=== PATIENT | male | born 1955 | race Caucasian/White ===

== ENCOUNTER 2018-08-24 07:38 | Inpatient (IN) | payer OTHER ==
[2018-08-24] VITALS (40 sets, daily range): BP systolic 51–123; BP diastolic 23–93
[~2018-08-24] VITALS: Ht 188 cm; Wt 179.2 kg
[2018-08-24 08:01] LABS: ABSOLUTE NEUTROPHILS 11.5 thou/uL (1.4-8.2); BASOPHILS 0.3 % (0.0-2.0); EOSINOPHILS 0.8 % (0.0-3.0); HEMATOCRIT 36.9 % (42.0-52.0); HEMOGLOBIN 11.9 gm/dL (14.0-18.0); LYMPHOCYTES 17.1 % (24.0-44.0); MCH 27.3 pg (26.0-34.0); MCHC 32.4 g/dL (28.0-37.0); MCV 84.3 fL (80.0-100.0); MONOCYTES 3.9 % (1.0-8.0); PLATELET COUNT 253 thou/uL (150-400); POLYS 77.9 % (36.0-66.0); RBC 4.37 mil/uL (4.50-6.00); RDW 17.7 % (10.5-14.5); WBC 14.7 thou/uL (4.0-11.0)
[2018-08-24 08:02] LABS: URINE CLARITY CLEAR; URINE COLOR YELLOW
[2018-08-24 08:03] LABS: URINE BILIRUBIN NEGATIVE (Negative); URINE BLOOD NEGATIVE (Negative); URINE GLUCOSE-RANDOM* NEGATIVE (Negative); URINE KETONES NEGATIVE (Negative); URINE LEUKOCYTES-REFLEX NEGATIVE (Negative); URINE NITRITE-REFLEX NEGATIVE (Negative); URINE PROTEIN (DIPSTICK) NEGATIVE (Negative); URINE SPECIFIC GRAVITY 1.015 (1.005-1.035); URINE UROBILINOGEN 0.2 E.U./dl (0.2-1.0)
[2018-08-24 08:16] LABS: CALCIUM 9.4 mg/dL (8.5-10.1); CREATININE 3.3 mg/dL (0.7-1.3); POTASSIUM 3.9 mmol/L (3.5-5.1)
[2018-08-24 08:19] LABS: APTT 33.6 Seconds (24.5-32.8); INR 1.2; PROTIME 12.5 Seconds (9.3-11.4)
[2018-08-24 08:22] LABS: ALBUMIN 3.3 g/dL (3.4-5.0); TOTAL BILIRUBIN 0.6 mg/dL (<0.1-1.0); TOTAL PROTEIN 7.4 g/dL (6.4-8.2)
[2018-08-24 08:24] LABS: MAGNESIUM 1.7 mg/dL (1.8-2.4); TROPONIN-I <0.06 ng/mL (<0.06)
--- NOTE | 2018-08-24 08:28 | NUR ---
TREATMENT FOR SEPSIS IN PLACE.
[2018-08-24] MEDS ORDERED: VITAMINC500 PO (08:38)
[2018-08-24] MEDS ORDERED: ELIQUIS5 MG PO (08:38)
[2018-08-24] MEDS ORDERED: VITAMIN D1000 UNI1 PO (08:39)
[2018-08-24] MEDS ORDERED: BISACODYL SUPP10 MG RECTAL (08:40)
[2018-08-24] MEDS ORDERED: CIPRO500 MG PO (08:40)
[2018-08-24] MEDS ORDERED: FLOMAX0.4 MG PO (08:40)
[2018-08-24] MEDS ORDERED: IRON325 PO (08:40)
[2018-08-24] MEDS ORDERED: LEVEMIR SUBQ (08:41)
[2018-08-24] MEDS ORDERED: NEURONTIN 300300 M1 PO (08:41)
[2018-08-24] MEDS ORDERED: PROBIOTIC1 EAC1 PO (08:41)
[2018-08-24] MEDS ORDERED: LOPRESSOR50 PO (08:42)
[2018-08-24] MEDS ORDERED: OXYCONTIN10 M1 PO (08:43)
[2018-08-24] MEDS ORDERED: MIRALAX17 GM PO (08:43)
[2018-08-24] MEDS ORDERED: THERAGRAN STRE1 EACH PO (08:44)
[2018-08-24] MEDS ORDERED: SIMVASTATIN20 MG PO (08:44)
[2018-08-24] MEDS ORDERED: PROTONIX40 M1 PO (08:44)
[2018-08-24] MEDS ORDERED: DEMADEX20 MG PO (08:45)
[2018-08-24] MEDS ORDERED: SENNA8.6 MG PO (08:45)
[2018-08-24] MEDS ORDERED: TYLENOL325 MG PO (08:45)
--- NOTE | 2018-08-24 09:09 | NUR ---
DR COOK AT [facility] PLACING SUBCLAVIAN CENTRAL LINE
--- NOTE | 2018-08-24 10:00 | NUR ---
REPORT RECEIVED FROM PREVIOUS FLAG DECORATOR. PT TRANSFERRED PER CART, THEN ADMITTED TO ICU #247 WITH DIAGNOSIS OF SEPSIS, CELLULITIS AND AFIB RVR. R LOWER EXTREMITY LATERAL AND POSTERIOR EXTREMITY PINK/RED AND WARM/HOT TO TOUCH, EDEMA GREATER IN R LOWER EXTREMITY THAN L. WOUND VAC TUBING REMAINS ATTACHED TO WOUND SITE. WOUND VAC REMOVED PRIOR TO HOSPITAL ARRIVAL. TATYANA WRAP INTACT ON R BKA STUMP SITE. LEVOPHED 20MCG/MIN, NS BOLUSES FROM ER COMPLETING. AFIB WITH RVR, 2L/NC, NO RESP DISTRESS, RESP EVEN AND UNLABORED, TOLERATING SIPS OF WATER, PAVON WITH CLEAR YELLOW URINE OUTPUT.
--- NOTE | 2018-08-24 11:30 | NUR ---
DR. TAYLOR RETURNED CALL. UPDATED ON PT STATUS. NS 1/L WIDE OPEN ORDERED.
[2018-08-24 12:45] LABS: HCO3 17.9 mmol/L (22.0-26.0); PCO2 30.2 mmHg (35.0-45.0); PO2 72.8 mmHg (80.0-100.0); sO2 94.8 % (92.0-98.0)
[2018-08-24 12:53] LABS: CALCIUM 8.7 mg/dL (8.5-10.1); CREATININE 3.6 mg/dL (0.7-1.3); POTASSIUM 3.3 mmol/L (3.5-5.1)
--- NOTE | 2018-08-24 13:05 | NUR ---
VASCULAR ACCESS CONSULTED FOR PICC LINE, PT HAS HX DIALYSIS WITH ELEVATED CREAT., CVAD MORE APPROPRIATE. DISCUSSED BENEFITS AND RISK OF CENTRAL LINE WITH PT, VERBALIZED UNDERSTANDING. PT WAS PREPPED AND DRAPED FOR MAX BARRIER PRECAUTIONS. 1% LIDOCAINE GIVEN SQ.25CM 6FR TL JACC INSERTED WITH 4CM EXTERNAL. STAT CXR SHOWED IN AZYGOS. LINE PULLED BACK 2CM AND POWER FLUSHED, NEXT CXR CONFIRMED PLACEMENT IN DISTAL SVC. LINE SECURED AND RELEASED FOR IMMEDIATE USE PER PROTOCOL TO VIRAJ KUO.
[2018-08-24 13:29] LABS: FIBRINOGEN 457.6 mg/dL (210-360)
[2018-08-24 13:33] LABS: APTT 50.1 Seconds (24.5-32.8)
--- NOTE | 2018-08-24 15:20 | NUR ---
DR. CANTU PLACED R RADIAL JODIE. WELL TOLERATED. JODIE READS ABOUT 30 LOWER THAN NIBP. VASOPRESSIN STARTED AT 0.03 UNITS/MIN. PT RESTING QUIETLY, DENIES ANY DISCOMFORT.
[2018-08-24 18:31] LABS: CALCIUM 8.3 mg/dL (8.5-10.1); POTASSIUM 3.4 mmol/L (3.5-5.1); TROPONIN-I 0.1 ng/mL (<0.06)
--- NOTE | 2018-08-24 18:50 | NUR ---
DR. SHAVER PAGED @ [phone]. CALL RETURNED AND UPDATED ON PT STATUS. AFIB WITH RVR 130'S TO 140'S AND HIGH 150'S. SEE MARS ADDITIONAL NS BOLUS ADMINISTRATION. MAP GOAL-60 FOR VASOACTIVE GTTS.
[2018-08-25] VITALS (19 sets, daily range): BP systolic 88–121; BP diastolic 44–74
[2018-08-25 02:15] LABS: CALCIUM 8.2 mg/dL (8.5-10.1); CREATININE 4.2 mg/dL (0.7-1.3); POTASSIUM 4.2 mmol/L (3.5-5.1)
[2018-08-25 04:42] LABS: HEMATOCRIT 32.6 % (42.0-52.0); HEMOGLOBIN 10.9 gm/dL (14.0-18.0); MCH 28.6 pg (26.0-34.0); MCHC 33.5 g/dL (28.0-37.0); MCV 85.2 fL (80.0-100.0); PLATELET COUNT 235 thou/uL (150-400); RBC 3.82 mil/uL (4.50-6.00); RDW 18.1 % (10.5-14.5)
[2018-08-25 04:44] LABS: WBC 41.6 thou/uL (4.0-11.0)
[2018-08-25 05:11] LABS: ABSOLUTE NEUTROPHILS 38.3 thou/uL (1.4-8.2)
[2018-08-25 05:13] LABS: ANISOCYTOSIS 2+; PLATELET ESTIMATE NORMAL; POLYCHROMASIA OCCASIONAL
--- NOTE | 2018-08-25 05:53 | NUR ---
ASSUMED PT CARE AT 1900 WITH REPORT TAKEN. PT IS ALERT BUT LETHARGIC WITH ADMISSION OF SEPSIS. HEART RATE IS AFIB WITH RVR WITH HYPOTENSION NOTED. PT IS PLACED ON SEPSIS PROTOCOL. DR CANTU NOTIFIED OF PATIENT'S STATUS AND ORDERS WERE RECEIVED. BKA IS PRESENT ON PT'S RIGHT LEG AND DRESSING WAS CHANGED AND PICTURES TAKEN AND PLACED IN CHART. PT IS STABLE. SCHEDULED MEDS ADMINISTERED TO PT AND PT TOLERATED MEDS. ART LINE AND CVP LINE PRESENT. PT IS AFEBRILE DURING THE NIGHT. PT IS STABLE EXECEPT FOR AFIB STATUS. DENIES ANY FURTHER NEED AT THIS TIME.
--- NOTE | 2018-08-25 13:25 | HC ---
[facility] [place] [address] CONSULTATION Name: SABINO BELL Room #: 247-P [facility] IN M.R.#: [id number] Admission: 08/24/18 Attend Phys: Kendall Sainz MD Discharge: Date of : 53 Report #: [id number] THIS REPORT FOR: //name// CC: Kendall Daniels DATE OF SERVICE: 08/24/2018 CONSULTATION: Infectious diseases. HISTORY OF PRESENT ILLNESS: Sabino Bell is a 63-year-old white male who was admitted emergently from his snf on the morning of 08/24/2018 because of fever with weakness and depressed mental status. The patient had very little documentation brought with him by the ambulance crew. There are no previous records at [facility]. In the ER, the patient was found to be in atrial fibrillation with a pulse of 199, blood pressure of 74/33 and temperature of 103.6. The patient was admitted urgently. Infectious Disease consultation was requested. The patient has history of diabetes with hypertension, atrial fibrillation. He underwent a below-knee amputation of his right leg in April of last year. He required dialysis and was on dialysis in June of last year, but has adequate recovery of kidney function to have the dialysis stopped and the catheter removed. The patient has diagnosis of obesity, peripheral artery disease. ALLERGIES: He notes allergies to PENICILLIN and SULFA. FAMILY HISTORY: Noncontributory. SOCIAL HISTORY: The patient is single. He hopes to return to living independently after he recovers from his amputation. He has been in hospitals or facilities for about a year according to the patient. 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 He does not use tobacco, alcohol or drugs. REVIEW OF SYSTEMS: Somewhat limited as the patient is still quite ill, but he is able to answer questions. He notes the fevers, chills, sweats, weakness, malaise. He does not complain of any headache, sinus congestion, sore throat, trouble swallowing. The patient is not complaining of cough, chest pain, shortness of breath. He is on oxygen here in the ICU. The patient denies nausea, vomiting, diarrhea or constipation. He denies any urinary complaints. He denies any pain in his extremities. MEDICATION RECONCILIATION: We do not have a medication list from the snf. The patient is not familiar with the medications that he is on. His current medication includes adenosine, vancomycin, and Tylenol. [address] [address] CONSULTATION Name: SABINO BELL Room #: 247-P [facility] IN ..#: [id number] Admission: 08/24/18 Attend Phys: Kendall Sainz MD Discharge: Date of : 53 Report #: [id number] PHYSICAL EXAMINATION: GENERAL: The patient appears his stated age, alert. He knows he is in the hospital. He is comfortable, not in distress. VITAL SIGNS: Showed that the pulse is down to 120 with an amiodarone drip. His blood pressure is stabilized on moderate dose of Levophed. His temperature has come down to normal. SKIN: Shows his below-knee amputation stump. This was unwrapped. There were 2 Manuel bandages. Under the bandage was a VAC sponge measuring about 6 x 4 cm. This was removed revealing a base of creamy fibrinous biofilm and exudate. The sponge was on the wound, but the vacuum device had been disconnected presumably when the patient left his facility. His admit time was approximately 15 hours prior to when I had a chance to examine the patient. The skin around the open wound was erythematous. The erythema spread posteriorly up behind the knee and then medially up towards the groin. The leg was somewhat tender. It was not swollen. It was red and warm as noted with the large purulent-appearing wound. Other extremities were unremarkable.The left leg had chronic venous stasis changes, but palpable pulse. ENT: Negative. HEART: Sounds rapid, but normal. LUNGS: Clear to anterior auscultation. ABDOMEN: Belly was obese, soft, not tender. LABORATORY DATA: White count was 14.7, hemoglobin 11.9, platelet 263,000. Electrolytes were normal. BUN was 89, creatinine was 4.0. Glucose was 243. Liver function tests showed elevation of alkaline phosphatase at 196. Thyroid function tests were normal. Lactate was 5.5, then down to 3.3. Procalcitonin was 176. BNP elevated at 3955 and troponin elevated at 0.11. MRSA swab from the nares was negative. Blood cultures x 2 from the ER are now showing Gram-positive cocci with identification and characterization to follow. some kind of catastrophic hospitalization, which included below-knee amputation, failure of the wound, temporary dialysis. He now returns with wound infection with cellulitis and Gram-positive bacteremia. He has septic parameters including fever, hypotension, tachycardia and again has dialysis level renal dysfunction. With 2 blood cultures showing Gram-positive cocci and appearing the wound as the source, I think it is reasonable to focus our antibiotics on vancomycin therapy. The patient received 2000 mg load in the ER and 500 mg 12 hours earlier. I think we should hold the vancomycin and check vancomycin level at 12 hours after the last dose. Depending on what happens with the renal function, the patient may not need vancomycin for another day or so. We do plan to keep his vancomycin level above 14 and dose appropriately. The patient does not need any further Gram-negative coverage. We want to follow septic parameters including white count, lactate and followup blood cultures. The patient will need renal [facility] [address] [place] [address] CONSULTATION Name: SABINO BELL Room #: 247-P ADM IN M.R.#: [id number] Admission: 08/24/18 Attend Phys: Kendall Sainz MD Discharge: Date of : 53 Report #: [id number] and cardiac evaluation for the elevated creatinine, elevated BNP, and elevated troponin. I would like to check a random cortisol to make sure that there is not a component of hypoadrenalism contributing to his hypotension. Hopefully, the patient will respond quickly to the antibiotics. I will be happy to follow the patient closely with you while he is in the hospital and assist with the antibiotic management. Thank you for referring him for Infectious Disease consultation. <ELECTRONICALLY SIGNED> By: Zohaib Michelle MD 08/25/18 1325 [id number] Zohaib Michelle MD /nt
--- NOTE | 2018-08-25 18:45 | NUR ---
SHIFT SUMMARY: PT PROGRESSING. LEVOPHED TITRATED FROM 30 MCG/MIN TO 3.6 MCG/MIN WHILE KEEPING MAP GREATER THAN 60, VASOPRESSIN CONTINUES AT 0.04 UNITS/MIN. BLOOD PRESSURES VARIABLE SINCE PT RAISING LOWERING HEAD OF BED FREQUENTLY FOR HIS COMFORT FALSELY AFFECTING BP EITHER HIGHER OR LOWER. CONFIRMED CONTINUATION OF SET RATE AMIODARONE 1 MG/MIN AND TO NOTIFY DR. CANTU IF HR DOWN TO 80'S. IV FLUIDS CHANGED TO INCLUDE NA BICARB. REMAINS IN AFIB WITH HR GENERALLY VARYING FROM 105 TO BRIEFLY LOWER 130'S. PT COMPLAINED OF CONSTIPATION WITH INITIAL FIRM STOOL THEN HAD 3 ADDITIONAL LARGE SOFT STOOLS.
[2018-08-25 19:21] LABS: ALBUMIN 2.6 g/dL (3.4-5.0); CREATININE 4.1 mg/dL (0.7-1.3); POTASSIUM 4.5 mmol/L (3.5-5.1); TOTAL BILIRUBIN 0.6 mg/dL (<0.1-1.0); TOTAL PROTEIN 6.6 g/dL (6.4-8.2)
--- NOTE | 2018-08-25 21:55 | EKG ---
[address] [place] [address] ELECTROCARDIOGRAM REPORT Name: SONIA BELL Room #: 247-P ADM IN M.R.#: [id number] Admission: 08/24/18 Attend Phys: Kendall Sainz MD Discharge: Date of : 53 Report #: [id number] THIS REPORT FOR: //name// [facility] ED Test Date: 2018-08-24 Test Time: 08:02:57 Pat Name: SONIA BELL Department: Room: [facility] Gender: M Handle Bender: jose alejandro : 1955 Requested By: Ky Roe Order Number: [id number] MD: Rambo Larry Measurements Intervals [place] Rate: 190 P: -41 FL: 132 QRS: 117 QRSD: 100 T: -48 QT: 276 QTc: 491 Interpretive Statements Supraventricular tachycardia Left posterior fascicular block Abnormal R-wave progression, late transition Minimal ST depression, inferior leads Borderline T abnormalities, inferior leads No previous ECG available for comparison Electronically Signed On 08-25-2018 21:55:10 HEAV[employer] EQUIPMENT SERVICE MANAGER by Rambo Larry [email or web address] <ELECTRONICALLY SIGNED> By: Rambo Larry MD 08/25/18 [phone] [id number] Rambo Larry MD /EPI
[2018-08-25 23:09] LABS: GLYCOHEMOGLOBIN (HGB A1C) 5.1 % (4.8-5.6)
[2018-08-26] VITALS (31 sets, daily range): BP systolic 103–134; BP diastolic 57–85
[2018-08-26 05:37] LABS: HEMATOCRIT 28.8 % (42.0-52.0); HEMOGLOBIN 9.3 gm/dL (14.0-18.0); MCH 27.3 pg (26.0-34.0); MCHC 32.4 g/dL (28.0-37.0); MCV 84.2 fL (80.0-100.0); PLATELET COUNT 150 thou/uL (150-400); RBC 3.42 mil/uL (4.50-6.00); WBC 30.1 thou/uL (4.0-11.0)
[2018-08-26 05:39] LABS: ALBUMIN 2.4 g/dL (3.4-5.0); CALCIUM 7.8 mg/dL (8.5-10.1); CREATININE 3.7 mg/dL (0.7-1.3); PHOSPHORUS 4.7 mg/dL (2.5-4.9); POTASSIUM 4.3 mmol/L (3.5-5.1)
--- NOTE | 2018-08-26 06:40 | NUR ---
END OF SHIFT SUMMARY: Pt progressing toward goals. More alert, interactive, oriented x4. Remains on levophed at 4 mcg/min and Vasopressin 0.04 units/min, but MAP has stayed > 65. Pt titrated down to room air, O2 sat remains > 92%. Monitor remains a-fib, rates 102-130. Amiodorone remains at 1 mg/min. CVP 12-23 cmH2O. Right BKA dressing dry and intact. Urine output adequate. Small amount soft unformed brown stool x1.
[2018-08-26 06:50] LABS: ABSOLUTE NEUTROPHILS 28.9 thou/uL (1.4-8.2); NUCLEATED RBCS 1 /100WBC
[2018-08-26 06:51] LABS: ANISOCYTOSIS 2+
--- NOTE | 2018-08-26 09:42 | NUR ---
RD consult received for pt with sepsis, likely recent right BKA source. Class III extreme obesity, 49. Hx dm. A1C was 5.1, however hospital BG elevated 228-308. Serum zinc pending. Tolerating diet. Needs carb controlled added to order and will also offer lucia bid. Otherwise low nutrition risk.
--- NOTE | 2018-08-26 15:50 | NUR ---
CM ASSESSMENT: CASE OPENED FOR DC PLANNING. CLINICAL INFO REVIEWED. PT ADMITS FROM SKILLED REHAB AT [facility], ADMITTED THERE 08/08/18 FROM [facility]. ADMITTED WITH SEPSIS, AFIB WITH RVR. MET WITH PT WHO IS DROWSY BUT ORIENTED X4. PT STATES HE HAD BEEB IN AND OUT OF HOSPITALS AND REHABS PAST COUPLE YEARS WITH COMORBID CONDITIONS. WAS LIVING IN APT, DRIVING, INDEPENENT WITH ADLS AND IADLS. DEVELOPED DIABETIC WOUND TO RIGHT HEEL, DEVELOPED OSTEO AND ULTIMATELY HAD BKA AND THEN DC TO SKILLED REHAB AT [facility]. PT STATES HAS GIVEN UP HIS APT BUT HOPE TO BE ABLE TO AVOID LTC. PT'S SISTER EMELYN VELEZ IS NEXT OF KIN [phone] AND CALLED HER WITH UPDATE. PT IS AGREEABLE TO RETURN TO [facility] TO RESUME REHAB WHEN MEDICALLY READY.
--- NOTE | 2018-08-26 16:20 | NUR ---
WOUND CONSULT: PT. WAS SEEN TODAY BY DR. JENSEN AND MYSELF. PT. HAS A LARGE ULCER TO HIS RIGHT BKA STUMP THAT HE STATES HAS BEEN THERE SINCE HIS AMPUTATION. RECOMMENDATIONS: WE WILL UTLIZE PULSE LAVAGE AND QUIRINO'S DAILY PT. AND STAFF NURSE WERE INSTRUCTED ON WOUND CARE.
--- NOTE | 2018-08-26 18:39 | NUR ---
SHIFT SUMMARY: ALERT AND ORIENTED, MEDICATED FOR HEADACHE AND NAUSEA WITH PRN MEDS. WEANED OFF THE LEVO AND VASO AND BP MAINTAINING WITHIN NORMAL LIMITS. NOT ABLE TO TOLERATE DIET, TAKING SIPS OF WATER. DRESSING ON RIGHT STUMP CHANGED EARLIER AND THEN THIS AFTERNOON BY WOUND CARE. PAVON WITH MARGINAL OUTPUT. WILL CONTINUE TO POC.
[2018-08-27] VITALS (34 sets, daily range): BP systolic 91–132; BP diastolic 60–87
[2018-08-27 04:40] LABS: ALBUMIN 2.3 g/dL (3.4-5.0); CALCIUM 7.7 mg/dL (8.5-10.1); CREATININE 3.4 mg/dL (0.7-1.3); PHOSPHORUS 4.3 mg/dL (2.5-4.9); POTASSIUM 4.3 mmol/L (3.5-5.1); TOTAL BILIRUBIN 0.5 mg/dL (<0.1-1.0); TOTAL PROTEIN 6.1 g/dL (6.4-8.2)
--- NOTE | 2018-08-27 16:19 | NUR ---
WOUND FOLLOW UP: PT. WAS SEEN TODAY BY DR. JENSEN AND MYSELF. PT. HAD STARTED PULSE LAVAGE TODAY AND WOUND BED IS RESPONDING WELL. RECOMMENDATIONS: CONTINUE WITH CURRENT PLAN OF CARE. PT. AND STAFF NURSE WERE INSTRUCTED ON PLAN OF CARE.
[2018-08-28] VITALS (11 sets, daily range): BP systolic 105–126; BP diastolic 56–79
[2018-08-28 05:03] LABS: HEMATOCRIT 26.6 % (42.0-52.0); HEMOGLOBIN 8.6 gm/dL (14.0-18.0); MCHC 32.3 g/dL (28.0-37.0); MCV 83.7 fL (80.0-100.0); RBC 3.18 mil/uL (4.50-6.00); RDW 18.4 % (10.5-14.5)
[2018-08-28 05:07] LABS: WBC 13.9 thou/uL (4.0-11.0)
[2018-08-28 05:11] LABS: ALBUMIN 2.3 g/dL (3.4-5.0); CALCIUM 7.8 mg/dL (8.5-10.1); PHOSPHORUS 4.2 mg/dL (2.5-4.9); POTASSIUM 3.8 mmol/L (3.5-5.1)
--- NOTE | 2018-08-28 14:01 | NUR ---
dp faxed udates to [facility], patient likely to dc to snf in 1 to 2 days. CM to follow up
--- NOTE | 2018-08-28 15:51 | NUR ---
WOUND FOLLOW UP: PT. WAS SEEN TODAY BY DR. JENSEN AND MYSELF. PT. IS RESPONDING WELL TO CURRENT THERAPY. RECOMMENDATIONS: CONTINUE WITH CURRENT PLAN OF CARE. PT. AND STAFF NURSE WERE INSTRUCTED ON PLAN OF CARE.
--- NOTE | 2018-08-29 03:33 | NUR ---
ASSUMED CARE AT 1900. PT AO X4. DENIES PAIN BUT REPORTS DISCOMFORT IN THE BED. BED SMALL FOR PT. HOUSE SUP NOTIFIED FOR BARIATRIC BED ORDER. PT ALSO REQUESTED THE LYPHEDEMA WRAPS OFF THEY WERE BECOMING TOO TIGHT, UNCOMFORTABLE AND MAKING HIM UNABLE TO SLEEP. PT REFUSED Q2H TURNS , ONLY TURNED PER REQUEST. WILL CONTINUE TO MONITOR AND FOLLOW POC.
[2018-08-29 04:23] VITALS: BP 122/78
[2018-08-29 05:27] LABS: HEMOGLOBIN 9.1 gm/dL (14.0-18.0); MCH 27.6 pg (26.0-34.0); MCHC 32.4 g/dL (28.0-37.0); MCV 85.1 fL (80.0-100.0); RBC 3.3 mil/uL (4.50-6.00); RDW 17.7 % (10.5-14.5); WBC 10.8 thou/uL (4.0-11.0)
[2018-08-29 05:31] LABS: ALBUMIN 2.4 g/dL (3.4-5.0); CALCIUM 8.2 mg/dL (8.5-10.1); CREATININE 2.8 mg/dL (0.7-1.3); PHOSPHORUS 4.2 mg/dL (2.5-4.9)
[2018-08-29 07:36] VITALS: BP 111/71
[2018-08-29 11:51] VITALS: BP 117/69
--- NOTE | 2018-08-29 14:48 | NUR ---
DISCHARGE PLANNING. PATIENT ADMITTED FROM [facility] SKILLED UNIT. PLAN IS FOR PATIENT TO RETURN TO [facility] ONCE MEDICALLY READY. UPDATED CLINICAL INFORMATION FAXED TO GILDA LEDEZMA INSTRUMENT WORKER. INFORMATION VERIFIED RECEIVED. CALL PLACE TO [facility] TO NOTIFY OF CLINICALS. FOLLOWING TO ASSIST WITH PATIENTS DISCHARGE NEEDS. UNIT CM/SW AWARE.
--- NOTE | 2018-08-29 15:08 | NUR ---
WOUND FOLLOW UP: PT. WAS SEEN TODAY BY DR. JENSEN AND MYSELF. PT. HAD PULSE LAVAGE COMPLETED AND IS RESPONDING WELL TO CURRENT PLAN OF CARE. RECOMMENDATIONS: CONTINUE WITH CURRENT PLAN OF CARE. PT. AND STAFF NURSE WERE INSTRUCTED ON PLAN OF CARE.
[2018-08-29 15:50] VITALS: BP 124/73
--- NOTE | 2018-08-29 16:03 | NUR ---
PT ALERT AND ORIENTED TIMES FOUR. VSS, 100%RA, AFIB CONTROLLED ON TELE. PAVON TO DD. PT TOLERATES MEDS AND MEALS. DRESSING TO RIGHT BKA DRESSED PER WOUND CARE TEAM. PT SLOWLY PROGRESSING TOWRADS POC GOALS.
[2018-08-29 20:33] VITALS: BP 127/77
[2018-08-30 04:35] VITALS: BP 152/88
--- NOTE | 2018-08-30 05:16 | NUR ---
0400 - patient c/o bladder fullness and pain. Assessed gamez catheter which had migrated further out. Attempted to drain catheter which was unsuccessful. Patient refused to allow the catheter to be advanced and wanted to have it removed. Gamez removed with no issues. 0515 - patient was able to spontaneously void after catheter removal.
[2018-08-30 06:14] LABS: ALBUMIN 2.5 g/dL (3.4-5.0); CALCIUM 8.4 mg/dL (8.5-10.1); CREATININE 2.5 mg/dL (0.7-1.3); PHOSPHORUS 4.1 mg/dL (2.5-4.9)
--- NOTE | 2018-08-30 06:37 | NUR ---
Patient slept off and on overnight. Dressing to RLE remained clean, dry and intact. Patient had no c/o pain, except for bladder fullness noted in previous note. Herrera removed overnight and patient has been able to void with no issues since. Patient progressing towards meeting goals.
[2018-08-30 07:50] VITALS: BP 137/74
--- NOTE | 2018-08-30 08:39 | NUR ---
PT C/O ANXIETY THIS MORNING, REPORTED TO DR MARTINEZ.
--- NOTE | 2018-08-30 08:41 | NUR ---
PT C/O PAIN IN THE ROOF OF HIS MOUTH, STATES IT FEELS VERY RAW AND HE IS UNABLE TO EAT OR DRINK ANYTHING BECAUSE OF THE PAIN. RN LOOKED IN MOUTH, SMALL LIGHT BROWN SPOTS ON ROOF OF MOUTH NOTED, NOTHING NOTED AT BACK OF PALETTE OR THROAT. PT STATES THE LOZENGES DO NOT HELP. DR PETER GILBERT
--- NOTE | 2018-08-30 09:41 | HC ---
[facility] [place] [address] CONSULTATION Name: SONIA BELL Room #: 356-P ADM IN M.R.#: [id number] Admission: 08/24/18 Attend Phys: Kendall Sainz MD Discharge: Date of : 53 Report #: [id number] THIS REPORT FOR: //name// CC: Kendall Daniels REASON FOR CONSULTATION: Acute kidney injury. REASON FOR PRESENTATION: Weakness and acute mental status changes. HISTORY OF PRESENT ILLNESS: This is a 63-year-old with extensive past medical history including 20 years of diabetes mellitus, chronic kidney disease. He previously was on dialysis and he tells me he regained his kidney function and was taken off dialysis back in June. He resides between different nursing facilities and he could not tell me whether he was supposed to follow up with a laborer syrup machine or not. He was dialyzing at [facility]. He has peripheral vascular disease, status post right below knee amputation in another facility. He also has extensive venous stasis changes on the left lower extremity. He presented yesterday and was found to have an acute kidney injury, AFib. He was extremely hypotensive. Creatinine on presentation yesterday was 4 and it has risen up to 4.2. He had a BUN of 88. I am being consulted to manage his acute kidney injury. PAST MEDICAL HISTORY: 1. Chronic kidney disease. 2. Diabetes mellitus. 3. Acute kidney injury requiring dialysis. 4. Peripheral vascular disease. 5. Status post right below knee amputation. 6. Atrial fibrillation. 7. Diabetic neuropathy. 8. IJ tunneled catheter in the past. FAMILY HISTORY: Strong family history of diabetes mellitus and hypertension. MEDICATIONS UPON PRESENTATION: 1. Ciprofloxacin. 2. Flomax. 3. Eliquis. 4. Metoprolol. 5. Gabapentin. 6. Torsemide. 7. Pantoprazole. 8. Insulin. SOCIAL HISTORY: He resides between different nursing facilities. No drug or alcohol abuse. [facility] [address] [place] [address] CONSULTATION Name: SONIA BELL Room #: [address] [place] [address] [place] [facility].#: [id number] Admission: 08/24/18 Attend Phys: Kendall Sainz MD Discharge: Date of : 53 Report #: [id number] REVIEW OF SYSTEMS: GENERAL: Significant for fever and chills and weakness. CARDIOVASCULAR: No chest pain. PULMONARY: No cough or hemoptysis. GASTROINTESTINAL: No nausea or vomiting. GENITOURINARY: He still makes urine. SKIN: As per the history of present illness. PHYSICAL EXAMINATION: GENERAL: He is alert, oriented. VITAL SIGNS: Pulse rate is 137. Blood pressure is marginal, 110/69, on Levophed and vasopressin. HEAD AND NECK: No jugular venous distention. CHEST: No crackles. CARDIOVASCULAR: No rub detected. ABDOMEN: Soft, nontender. LOWER EXTREMITIES: Venous stasis changes in the left side with cellulitic changes. Right below knee amputation. LABORATORY DATA: Reviewed. White blood cell count is 41,000. Chemistry from today revealed a sodium of 138, potassium of 4.2. BUN was 88, creatinine was 4.2. Chest x-ray from yesterday reviewed. ASSESSMENT, IMPRESSION: 1. Acute kidney injury. 2. Chronic kidney disease. 3. Hypertension with severe sepsis. 4. Longstanding diabetes mellitus. PLAN: 1. I need to review the patient's medical records from his facility. He tells me that he was taken off dialysis. It is not clear to me what his baseline kidney function is. 2. From the renal perspective, his acute kidney injury seems to be related to hypoperfusion because of his hypotension. I agree with the current sepsis protocol. 3. Blood cultures. 4. Pressors. 5. IV fluid. 6. Tailor antibiotics according to the blood culture as he is currently having gram-positive cocci in blood. 7. Monitor urine output. [address] [address] CONSULTATION Name: SONIA BELL Room #: 356-P [facility] IN M.R.#: [id number] Admission: 08/24/18 Attend Phys: Kendall Sainz MD Discharge: Date of : 53 Report #: [id number] 8. He made about 700 mL of urine and I will hold on any dialysis procedures at this point until we stabilize his critical condition. <ELECTRONICALLY SIGNED> By: Krystin Daniels MD 08/30/18 0941 [id number] [id number] Krystin Daniels MD /charlotte
[2018-08-30 11:16] VITALS: BP 139/81
--- NOTE | 2018-08-30 13:47 | NUR ---
ON-GOING ASSESSMENT: CM REVIEWED CHART AND SPOKE WITH LIASON FROM [facility] WHO REPORTS INSURANCE IS REQUESTED UPDATED PT NOTE FROM TODAY SINCE PATIENT WAS VARIANCED EARLIER AND OT NOTE INCLUDING TOILETING AND TRANSFERS. CM NOTIFIED VP AD SALES WEST IN ATTEMPTS TO GET PATIENT SEEN BY PT/OT AGAIN. CM SPOKE WITH PATIENT REGARDING IMPORTANCE OF THERAPY EVALS. CM ALSO SPOKE WITH PATIENTS SISTER TO UPDATE. PT WILL DISCHARGE TO [facility] ONCE MEDICALLY STABLE AND IF THEY RECEIVED INSURANCE AUTH. INSURANCE AUTH IS STILL PENDING AT THIS TIME.
--- NOTE | 2018-08-30 14:24 | NUR ---
WOUND FOLLOW UP: PT. WAS SEEN TODAY BY DR. JENSEN AND MYSELF. PT. WOUND IS RESPONDING WELL TO CURRENT THERAPYS. PT. HAS HAD HIS LEFT LEG NOW WRAPED BY LYMPEDEMA THERAPY AND IT IS C/D/I AT THIS TIME. RECOMMENDATIONS: CONTINUE WITH CURRENT PLAN OF CARE. PT. AND STAFF NURSE WERE INSTRUCTED ON PLAN OF CARE.
[2018-08-30 16:29] VITALS: BP 135/74
[2018-08-30 19:24] VITALS: BP 143/72
--- NOTE | 2018-08-31 03:22 | NUR ---
ASSUMED PT CARE AROUND 1900. A&OX4. C/O PAIN IN MOUTH DUE TO MOUTH SORES. THROAT LOZENGE GIVEN PER EMAR. AFIB ON TELE, RATE CONTROLLED. VOIDS INDEPENDENTLY PER URINAL. PT REFUSED TO BE REPOSITIONED W/ WEDGE OR PILLOWS. USED LATERAL BED ROTATION TO REPOSITION PT. WEEPING NOTED TO RLE. PT HAD ONE BOWEL MOVEMENT THIS SHIFT. PT SLEPT MOST OF THE NIGHT. RESP EVEN AND UNLABORED. PROGRESSING TOWARD POC GOALS. WILL CONTINUE TO MONITOR FURTHER.
[2018-08-31 03:51] VITALS: BP 147/75
[2018-08-31 05:56] LABS: ALBUMIN 2.4 g/dL (3.4-5.0); CALCIUM 8.5 mg/dL (8.5-10.1); CREATININE 2.2 mg/dL (0.7-1.3); PHOSPHORUS 3.9 mg/dL (2.5-4.9); POTASSIUM 3.8 mmol/L (3.5-5.1)
[2018-08-31 07:55] VITALS: BP 140/78
[2018-08-31 12:15] VITALS: BP 143/73
--- NOTE | 2018-08-31 15:38 | NUR ---
ASSUMED PATIENT CARE AT 0715. A&OX4. COMPLAINTS OF BLADDER PAIN. BLADDER SCANNED TO SEE IF PATIENT WAS RETAINING. BLADDER SCAN SHOWED 0 MLS IN. URINE IS CLEAR YELLOW. PYRIDIUM ORDERED ALONG WITH A UA. UA SENT TO LAB. PATIENT IN A BARIATRIC BED. DRESSING CHANGED PER ORDERS. PATIENT TAKING BREATHING TREATMENTS TODAY. RIGHT UPPER LEG HAS MULTIPLE BLISTERS WHICH ARE DRAINING. PATIENT ABLE TO MAKE NEEDS KNOWN. HOURLY ROUNDING TO CHECK NEEDS.
[2018-08-31 15:50] VITALS: BP 150/81
[2018-08-31 16:22] LABS: URINE BILIRUBIN NEGATIVE (Negative); URINE BLOOD 1+ (Negative); URINE CLARITY CLEAR; URINE COLOR YELLOW; URINE GLUCOSE-RANDOM* NEGATIVE (Negative); URINE KETONES NEGATIVE (Negative); URINE NITRITE-REFLEX NEGATIVE (Negative); URINE PROTEIN (DIPSTICK) NEGATIVE (Negative); URINE UROBILINOGEN 0.2 E.U./dl (0.2-1.0)
[2018-08-31 16:23] LABS: URINE LEUKOCYTES-REFLEX NEGATIVE (Negative)
[2018-08-31 17:06] LABS: CASTS None Seen /LPF (None Seen); SQUAMOUS None Seen /LPF (0-3)
[2018-08-31 17:07] LABS: URIC ACID CRYSTALS 4-10 Moderate /LPF (None Seen)
[2018-08-31 17:08] LABS: URINE RBC 3-10 Few /HPF (0-2); URINE WBC-REFLEX 0-5 Rare /HPF (0-5)
[2018-08-31 17:09] LABS: BACTERIA-REFLEX 1-9 Few /HPF (None Seen)
[2018-08-31 20:05] VITALS: BP 142/74
[2018-09-01 03:30] VITALS: BP 147/79
--- NOTE | 2018-09-01 04:56 | NUR ---
ASSUMED PT CARE AROUND 1900. A&OX4. C/O PAIN IN HIS MOUTH DUE TO SORES. ALSO C/O PAIN/PRESSURE WITH URINATION. PAIN MEDICATION GIVEN PRN. VOIDS ADEQUATELY PER URINAL. DOES NOT WANT TO BE REPOSITIONED WITH WEDGE OR PILLOW, SO BED PROGRAMMED TO DO CLRT. PT SLEPT MOST OF THE NIGHT. RESP EVEN AND UNLABORED. PROGRESSING SLOWLY TOWARD POC GOALS. WILL CONTINUE TO MONITOR FURTHER.
[2018-09-01 07:49] VITALS: BP 152/75
[2018-09-01 11:06] VITALS: BP 175/80
[2018-09-01 14:17] LABS: URINE CLARITY CLEAR; URINE COLOR YELLOW; URINE GLUCOSE-RANDOM* NEGATIVE (Negative); URINE KETONES NEGATIVE (Negative); URINE PROTEIN (DIPSTICK) NEGATIVE (Negative); URINE SPECIFIC GRAVITY 1.015 (1.005-1.035)
[2018-09-01 14:18] LABS: URINE BILIRUBIN NEGATIVE (Negative); URINE BLOOD 1+ (Negative); URINE LEUKOCYTES NEGATIVE (Negative); URINE NITRITE POSITIVE (Negative); URINE UROBILINOGEN 0.2 E.U./dl (0.2-1.0)
[2018-09-01 14:26] LABS: BACTERIA None Seen /HPF (None Seen); CASTS None Seen /LPF (None Seen); MUCUS None Seen strn/LPF (None Seen); SQUAMOUS 0-3 Few /LPF (0-3); URINE RBC 0-2 Rare /HPF (0-2); URINE WBC 0-5 Rare /HPF (0-5)
[2018-09-01 14:27] LABS: CRYSTALS None Seen /LPF (None Seen)
--- NOTE | 2018-09-01 19:00 | NUR ---
LUNGS DIMINISHED AND PATIENT HAS REFUSED RT TX ALL SHIFT...RA SAT 96% RA..
[2018-09-01 19:30] VITALS: BP 140/60
[2018-09-02 04:15] VITALS: BP 150/89
[2018-09-02 04:16] LABS: HEMOGLOBIN 11.3 gm/dL (14.0-18.0); MCH 28.5 pg (26.0-34.0); MCHC 33.3 g/dL (28.0-37.0); MCV 85.5 fL (80.0-100.0); RBC 3.98 mil/uL (4.50-6.00); RDW 17.8 % (10.5-14.5); WBC 9.3 thou/uL (4.0-11.0)
--- NOTE | 2018-09-02 04:41 | NUR ---
ASSUMED PT CARE AROUND 1900. ORIENTED X4. PT SLEPT MOST OF THE NIGHT. C/O PAIN/PRESSURE WITH URINATION. PAIN MEDICATION GIVEN. PT IS VOIDING ADEQUATELY PER URINAL. AFIB WITH CONTROLLED RATE ON TELE. BED WITH CLRT MODE ON PT REFUSES TO BE REPOSITIONED WITH WEDGE OR PILLOWS. PROGRESSING TOWARD POC GOALS. WILL CONTINUE TO MONITOR FURTHER.
[2018-09-02 05:06] LABS: ALBUMIN 2.6 g/dL (3.4-5.0); CALCIUM 8.6 mg/dL (8.5-10.1); CREATININE 1.7 mg/dL (0.7-1.3); PHOSPHORUS 3.6 mg/dL (2.5-4.9)
[2018-09-02 05:23] LABS: POTASSIUM 2.9 mmol/L (3.5-5.1)
--- NOTE | 2018-09-02 07:38 | HC ---
[facility] [place] [address] CONSULTATION Name: SONIA BELL Room #: 356-[facility] [id number] Admission: 08/24/18 Attend Phys: Kendall Sainz MD Discharge: Date of : 53 Report #: [id number] THIS REPORT FOR: //name// CC: Kendall Daniels DATE OF SERVICE: 08/26/2018 CHIEF COMPLAINT: Right below-knee amputation stump wound. HISTORY OF PRESENT ILLNESS: This is a 63-year-old male patient who I have been asked to see regarding a large open wound involving his right BKA. He underwent the below-knee amputation in April. The area has dehisced somewhat. He is currently admitted to the Intensive Care Unit due to weakness and acute mental status changes. He has been hypotensive, requiring pressor support. He is not able to answer a lot of questions. He did state that he had the surgery done in [facility] and has been using a wound VAC up until recently. ALLERGIES: INCLUDE AMPICILLIN, PENICILLIN, SULFA, AND TRIMETHOPRIM. CURRENT MEDICATIONS: Include Eliquis, vitamin C, vitamin D, Cipro, iron, Dulcolax, Flomax, Neurontin, Levemir, probiotic, Lopressor, OxyContin, MiraLax, Protonix, simvastatin, Theragran Stress Tab, Demadex, Tylenol, and senna. PAST MEDICAL HISTORY: Positive for history of atrial fibrillation, acute kidney failure. SOCIAL HISTORY: Negative for alcohol or tobacco use that is known. REVIEW OF SYSTEMS: Really not obtainable due to the patient's poor level of alertness and mentation at this time. PHYSICAL EXAMINATION: VITAL SIGNS: At this time include pulse rate of 115, respiratory rate of 27, blood pressure 122/73, temperature 98.8. GENERAL: This is a chronically ill-appearing male patient who is somewhat diaphoretic, in no obvious distress, but not able to answer questions. HEENT: Head normocephalic. NECK: Supple. LUNGS: Diminished. HEART: Tachycardic without obvious murmur. ABDOMEN: Soft, nontender. EXTREMITIES: Demonstrate right BKA. He has an open wound. There is no bony exposure. There is moderate slough and fibrinous material in the center. The periphery appears to be granulating. There is mild surrounding erythema. Left foot and ankle appear to be intact. [address] [address] CONSULTATION Name: SONIA BELL Room #: 356-P [facility]#: [id number] Admission: 08/24/18 Attend Phys: Kendall Sainz MD Discharge: Date of : 53 Report #: [id number] NEUROLOGIC: The patient does move symmetrically. He is unable to answer specific questions. LABORATORY DATA: Include sodium 136, potassium 4.3, CO2 21, BUN 98, creatinine 3.7, glucose 235. Albumin is 2.4. White blood cell count is 30.1 with hemoglobin of 9.3. CLINICAL IMPRESSION: 1. Surgical wound following dehiscence of a right below-knee amputation, original surgery done in 04/2018. 2. Wound infection. 3. Hypotension with sepsis. 4. Acute kidney injury. 5. Atrial fibrillation with rapid ventricular response. RECOMMENDATIONS: At this point in time, we will recommend quarter-strength Dakin's moist gauze dressing to the BKA stump. He will need a low air loss mattress bariatric size, q. 2 hours turning and repositioning. We will recommend pulse lavage to the stump area. We may consider a wound VAC and in the future, he will need aggressive nutritional support. At this point in time, we have changed the patient's dressing. We will continue to follow him here in the hospital. I appreciate being asked to see him in consultation. <ELECTRONICALLY SIGNED> By: Mariano Benito MD 09/02/18 [id number] Mariano Benito MD /nt
[2018-09-02 08:02] VITALS: BP 168/81
--- NOTE | 2018-09-02 10:37 | NUR ---
Nutrition: pt seen per followup. Admit with sepsis, AMS, recent BKA source of infection. No wt change lead admit, BMI 50, extreme class 3 obesity. BG improved 113-146, last A1C 5.1. Serum Zince level-27, Low but no supplementation ordered. Current c/o poor intake due to mouth sores. On lidocaine swish/spit. Was drinking Duran supplements. Will offer Glucerna on trays as liquids better tolerated than solids at this time and continue to encourage/monitor intake for healing. REC order Zinc supplementation.
--- NOTE | 2018-09-02 12:03 | NUR ---
dp sent updates to [employer] and asked to continue to seek authorization. TAISHA sent message to Sheryl/FEDERICO to let her know to look for updates dp faxed.
[2018-09-02 12:21] VITALS: BP 148/79
[2018-09-02 16:23] LABS: HEMATOCRIT 35.9 % (42.0-52.0); HEMOGLOBIN 11.7 gm/dL (14.0-18.0); MCH 27.8 pg (26.0-34.0); MCHC 32.6 g/dL (28.0-37.0); MCV 85.5 fL (80.0-100.0); RBC 4.2 mil/uL (4.50-6.00); RDW 17.9 % (10.5-14.5); WBC 10.7 thou/uL (4.0-11.0)
--- NOTE | 2018-09-02 17:43 | NUR ---
PATIENT NOW SLEEPING AND RESPRIATIONS ARE EVEN NON LABORED. HE KEEPS COMPLAINING OF PAIN TO RIGHT GROIN. DR NOTIFIED. HE ALSO DOES PAINFUL MICTURATIONS. RESPIRATIONS ARE NON LABORED AT THIS TIME. DRESSING CHANGED TO RIGHT STUMP. BLEEDING NOTED. WILL CONT WITH PLAN OF CARE.
[2018-09-02 20:00] VITALS: BP 149/81
[2018-09-03 03:46] VITALS: BP 143/87
[2018-09-03 05:21] LABS: ALBUMIN 2.6 g/dL (3.4-5.0); CALCIUM 8.4 mg/dL (8.5-10.1); CREATININE 1.5 mg/dL (0.7-1.3); PHOSPHORUS 3.6 mg/dL (2.6-4.7); POTASSIUM 3.6 mmol/L (3.5-5.1)
--- NOTE | 2018-09-03 05:30 | NUR ---
ASSUMED PT CARE AROUND 1900. ORIENTED X4. PT SLEPT MOST OF THE NIGHT. RESP EVEN AND UNLABORED. PLACED EXTERNAL MALE CATHETER ON PT, WHICH DID NOT WORK WELL. PT HAS BEEN VOIDING ADEQUATELY, BUT HAVING SOME INCONTINENCE. BED IN CLRT MODE PT DOES NOT WANT TO BE MANUALLY TURNED. PROGRESSING SLOWLY TOWARD POC GOALS. WILL CONTINUE TO MONITOR FURTHER.
[2018-09-03 07:55] VITALS: BP 153/80
[2018-09-03 11:43] VITALS: BP 134/76
--- NOTE | 2018-09-03 11:50 | NUR ---
patient to dc today, dp sent updates to [facility] asking for them to seek authorization for admission today. TAISHA also notified Sheryl at [facility] of incoming fax and request for auth.
--- NOTE | 2018-09-03 12:57 | NUR ---
Assumed care of patient at 0700. Vitals have been stable. Patient has been drowsy today, but arouses easily. Oriented x4. Very flat affect, irritable. Complaints of pain in mouth from sores, but states nothing really helps. PRN given as patient requests. Wound care to right BKA as ordered - picture taken anticipating discharge soon. Patient refuses to be turned with wedge or pillows, CLRT initiated on bed. Voiding per urinal, but incontinent at times. Cleaned as needed, barrier cream applied. Incontinent of stool this morning, appears brown / red. Occult blood ordered and is positive. Notified Dr. Sainz. Sodium is high today, IVF initiated and encouraging patient to drink water and stay hydrated. Attempting to progress towards POC. Will continue to monitor.
--- NOTE | 2018-09-03 13:56 | NUR ---
WOUND FOLLOW UP: PT. WAS SEEN TODAY BY DR. JENSEN AND MYSELF. PT. WOUND IS HEALING WELL AND RESPONDING WELL TO CURRENT THERAPY. RECOMMENDATIONS: CONTINUE WITH CURRENT PLAN OF CARE. PT. AND STAFF NURSE WERE INSTRUCTED ON PLAN OF CARE.
--- NOTE | 2018-09-03 14:42 | NUR ---
Dr. Sainz updated about occult blood result - no new orders received at this time.
[2018-09-03 16:18] VITALS: BP 138/75
--- NOTE | 2018-09-03 16:59 | NUR ---
on-going assessment: CM WAS NOTIFIED BY MARICARMEN LEDEZMA AT [facility] WHO STATES THEY HAVE INSURANCE AUTH. CM NOTIFIED ATTENDING WHO STATES NURSE PRACTIONER WILL COMPLETE ORDERS. CM NOTIFIED NURSE PRACTIONER WHO STATES SHE DOES NOT FEEL PATIENT IS MEDICALLY STABLE FOR DISCHARGE, RABBET OPERATOR SPOKE WITH ATTENDING AND DISCHARGE ON HOLD FOR TODAY. CM NOTIFIED BEDSIDE RN. CM WILL CONTINUE TO FOLLOW TO ASSIST NEEDED.
[2018-09-03 19:15] VITALS: BP 145/77
[2018-09-04 03:50] VITALS: BP 137/70
[2018-09-04 04:19] LABS: ALBUMIN 2.3 g/dL (3.4-5.0); CALCIUM 7.9 mg/dL (8.5-10.1); CREATININE 1.3 mg/dL (0.7-1.3); MAGNESIUM 1.8 mg/dL (1.8-2.4); PHOSPHORUS 2.7 mg/dL (2.5-4.9); POTASSIUM 3.3 mmol/L (3.5-5.1)
[2018-09-04 05:42] LABS: ABSOLUTE NEUTROPHILS 7.5 thou/uL (1.4-8.2); BASOPHILS 0.2 % (0.0-2.0); EOSINOPHILS 0.7 % (0.0-3.0); HEMATOCRIT 30.3 % (42.0-52.0); LYMPHOCYTES 16.9 % (24.0-44.0); MCH 28.2 pg (26.0-34.0); MCHC 32.9 g/dL (28.0-37.0); MCV 85.6 fL (80.0-100.0); MONOCYTES 5.6 % (1.0-8.0); PLATELET COUNT 244 thou/uL (150-400); POLYS 76.6 % (36.0-66.0); RBC 3.54 mil/uL (4.50-6.00); RDW 17.9 % (10.5-14.5); WBC 9.7 thou/uL (4.0-11.0)
--- NOTE | 2018-09-04 07:46 | NUR ---
SLEPT MOST OF SHIFT. FLAT AFFECT. DENIES COMPLAINTS OF PAIN OR SHORTNESS OF AIR. INCONTINENT OF STOOL THIS AM RED/BROWN SOFT THIS AM. DENIES COMPLAINTS OF ABDOMINAL PAIN. WORKING ON GOALS AND PLAN OF CARE FOR NOC. PROGRESSING SLOWLY TOWARDS DISCHARGE GOALS TO [place]. REFUSES TO TURN, BED ON CRLT. CONTINUE TO ASSES CLOESLY.
[2018-09-04 07:58] VITALS: BP 126/68
--- NOTE | 2018-09-04 09:48 | NUR ---
Patient is currently refusing potassium replacement - attempted to replace IV, but patient yelling, stating it ye. Potassium is Y'ed in with IVF and rate was slowed down, but patient still complaining of burning. Updated azeem Arzate to DC IV and for PO replacement. Taken 2 potassium pills and asked if patient would like to take whole or to split pills in half. Patient states he will not take them. Offered to change pills to liquid form, for easier swallow and patient states no. Told patient to let nursing know if he changes his mind.
[2018-09-04 12:16] VITALS: BP 128/72
--- NOTE | 2018-09-04 14:03 | NUR ---
ON-GOING ASSESSMENT: PATIENT TESTED POSITIVE FOR STOOL OCCULT AND GI WAS CONSULTED. GI IS WANTING TO DO EGD/COLONOSCOPY BUT PATIENT HAS TO BE OFF ELIQUIS. PATIENT IS NOT STABLE FOR DISCHARGE TODAY TO [facility]. CM NOTIFIED LIASON AT [facility] WHO STATES CURRENT SNF AUTH IS GOOD UNTIL 09/05/18 AT 1500. CM WILL CONTINUE TO FOLLOW.
--- NOTE | 2018-09-04 15:14 | NUR ---
WOUND FOLLOW UP: PT. WAS SEEN TODAY BY DR. JENSEN AND MYSELF. PT. WOUND IS CLINICALLY BETTER TODAY. RECOMMENDATIONS: CONTINUE WITH CURRENT PLAN OF CARE. PT. AND STAFF NURSE WERE INSTRUCTED ON PLAN OF CARE.
[2018-09-04 16:04] VITALS: BP 132/71
--- NOTE | 2018-09-04 19:54 | NUR ---
Assumed care of patient at 0700. Vitals have been stable. Patient alert and oriented x4, flat affect. Very angry / hostile today. Refusing a lot of medications and treatments at times. States "just leave me alone and go." See previous note regarding potassium. Patient did agree to take 40 meq of potassium x1. Has refused insulin at times. Refuses to be turned with wedges and pillows; CLRT is initated on bed . Refused wound care this morning, but was agreeable early afternoon. Dressing changed per orders. IVF discontinued per orders. Continue to encourage hydration. Also encouraging to use Lidocaine swish and spit more often to help with pain from mouth sores. Also Tramadol PRN. Viral culture taken of oral sores and sent to lab. Started on Acyclovir IV. GI consult today for bloody stools. Not progressing towards POC. Will continue to monitor.
[2018-09-04 20:10] VITALS: BP 133/75
[2018-09-04 22:47] LABS: HEMATOCRIT 31.2 % (42.0-52.0); HEMOGLOBIN 10.3 gm/dL (14.0-18.0)
[2018-09-05 04:06] VITALS: BP 115/66
--- NOTE | 2018-09-05 04:53 | NUR ---
SLEPT PART OF SHIFT. REFUSES TO TURN BUT BED IS ON TURN ASSIST. INCONTINENT OF SMALL RED/BROWN STOOL. HGB REMAINS STABLE AT THIS TIME. ASSISTED WITH BATH CARE. PATIENT UPSET MOUTH SORES STILL HURT. REINFORCED NEW ANTIBIOTIC WILL TAKE TIME TO WORK. WORKING ON GOALS AND PLAN OF CARE FOR NOC. NOT PROGRESSING TOWARDS DISCHARGE GOALS. CONTINUE TO ASSES.
[2018-09-05 05:53] LABS: HEMATOCRIT 32.2 % (42.0-52.0); HEMOGLOBIN 10.6 gm/dL (14.0-18.0); MCV 84.6 fL (80.0-100.0); RBC 3.8 mil/uL (4.50-6.00); RDW 17.4 % (10.5-14.5); WBC 9.3 thou/uL (4.0-11.0)
[2018-09-05 06:20] LABS: ALBUMIN 2.5 g/dL (3.4-5.0); CALCIUM 8.2 mg/dL (8.5-10.1); CREATININE 1.2 mg/dL (0.7-1.3); PHOSPHORUS 2.8 mg/dL (2.5-4.9); POTASSIUM 3.7 mmol/L (3.5-5.1)
[2018-09-05 07:57] VITALS: BP 119/67
[2018-09-05 10:46] LABS: HEMATOCRIT 30.8 % (42.0-52.0)
[2018-09-05 11:48] VITALS: BP 118/72
--- NOTE | 2018-09-05 11:49 | NUR ---
ON-GOING ASSESSMENT: GI IS WANTING TO DO EGD/COLONOSCOPY BUT PATIENT HAS TO BE OFF ELIQUIS. Planning for possibly on sunday. CM NOTIFIED LIASON AT [facility]. ONCE PATIENT IS MEDICALLY STABLE WE WILL HAVE TO SEEK INSURANCE AUTH. CM WILL CONTINUE TO FOLLOW.
--- NOTE | 2018-09-05 14:10 | NUR ---
WOUND FOLLOW UP: PT. WAS SEEN TODAY BY DR. JENSEN AND MYSELF. PT. WAS COMPLAINING OF MORE PAIN TODAY THAN HE HAS WITH PREVIOUS DRESSING CHANGES. WOUND CARE ORDERS WERE CHANGED TO AID IN HEALING AND COMFORT OF PATIENT. RECOMMENDATIONS: CONTINUE WITH CURRENT PLAN OF CARE. PT. AND STAFF NURSE WERE INSTRUCTED ON PLAN OF CARE.
--- NOTE | 2018-09-05 16:14 | NUR ---
ASSUMED PATIENT CARE AT SHIFT CHANGE. A&OX4. COMPLAINTS OF MOUTH PAIN. LIDOCAINE SWISH AND SPIT, ORAGEL, AND LOZENGES PROVIDED TO PATIENT. PATIENT VERY RUDE TO STAFF. PATIENT TOLD THIS NURSE TO "GET THE FUCK OUT." PATIENT WAS NOT WANTING TO TAKE MEDICATION IN FRONT OF NURSE. PATIENT EVENTUALLY TOOK MEDICATIONS. ELIQUIS ON HOLD. GI ON BOARD FOR POSITIVE OCCULT BLOOD. PATIENT REFUSING TO BE TURNED. WOUND CARE CHANGED DRESSING TODAY, SEE ORDERS. NOT PROGRESSING TOWARDS GOALS.
[2018-09-05 19:50] VITALS: BP 145/76
[2018-09-05 22:41] LABS: HEMATOCRIT 29.1 % (42.0-52.0); HEMOGLOBIN 9.7 gm/dL (14.0-18.0)
--- NOTE | 2018-09-06 01:11 | NUR ---
1915: DURING BEDSIDE REPORT PATIENT HOSTILE DEMANDING BREAD. PATIENT ON CLEAR LIQUID DIET PER GI DUE TO MOUTH SORES. BELIGERANT SPEECH SAYING WE ARE ABUSING HIM FOR NOT FEEDING HIM. STATES HE IS RECIEVING NO CARE HERE. STATES HE IS GOING TO CALL 911 AND TELL THE POLICE HE IS NOT RECIEVING CARE. INFORMED PATIENT THAT NURSE WILL CALL DR BUT NOTHING COULD BE DONE UNTIL DR RETURNED CALL. ASKED PATIENT TO GIVE NURSE 30 MINUTES TO FIND OUT IF DR WOULD ALLOW INCREASE, PATIENT STILL SPEAKING WITH HOSTILITY. 1919: RECIEVED PHONE CALL FROM POLICE DEPARTMENT STATING PATIENT CALLED 911 STATING HE WAS NOT BEING TAKEN CARE OF AND WE WERE REFUSING TO FEED HIM. 1929: SECURITY CALLED FOR ASSISTANCE WITH PATIENT. CALL PLACED TO Ani MARTIN ASSISTANT PROFESSOR OF MARINE BIOLOGY REQUESTED TO CALL GI . 1944: RECIEVED CALL FROM DR. OWUSU. ORDERS TO RESUME PREVIOUS DIET. 1950: PATIENT POLITE TO NURSE AND TIERCE FILLER PAST LONG CONVERSATION WITH SECURITY. COMPLIED WITH REPOSITIONING BUT WOULD NOT TURN, REASSESMENT, BLOOD SUGAR, VS, AND MEDICATIONS. CONTINUE TO ASSES. 0001: PATIENT SLEEPING WITHOUT COMPLAINTS AT THIS TIME.
[2018-09-06 04:35] VITALS: BP 141/78
[2018-09-06 06:07] LABS: CALCIUM 8.2 mg/dL (8.5-10.1); CREATININE 1.3 mg/dL (0.7-1.3); POTASSIUM 3.7 mmol/L (3.5-5.1)
--- NOTE | 2018-09-06 06:43 | NUR ---
SLEPT MOST OF SHIFT. HAS BEEN COOPERATIVE SINCE SECURITY. STILL REFUSES TO TURN. NO BLEEDING NOTED THIS SHIFT. WORKING ON GOALS AND PLAN OF CARE. NOT PROGRESSING TOWARDS DISCHARGE GOALS. CONTINUE TO ASSES.
[2018-09-06 09:03] VITALS: BP 130/69
[2018-09-06 10:41] LABS: HEMATOCRIT 33.6 % (42.0-52.0); HEMOGLOBIN 11.4 gm/dL (14.0-18.0)
--- NOTE | 2018-09-06 11:53 | NUR ---
ASSUMED PATIENT CARE AT 0715. PATIENT MUCH MORE PLEASANT TODAY. ALLOWED NURSE AND GUT CARRIER TO GIVE BED BATH IN THE MORNING. ALLOWING GUT CARRIER TO CHECK BLOOD SUGARS. USED BED CURIEL TODAY AND HAD A RED BROWN STOOL. GI NOTIFIED. PATIENT REFUSING TURNS. BOBBY BED HELPS WITH REPOSITIONING. LIDOCAINE SWISH AND SPIT PRN. PATIENT STATES MOUTH IS FEELING BETTER. ABLE TO MAKE NEEDS KNOWN. SLOWLY WORKING TOWARDS GOALS.
[2018-09-06 12:40] VITALS: BP 132/70
--- NOTE | 2018-09-06 15:33 | NUR ---
ON-GOING ASSESSMENT: CM RECEIVED A CALL FROM BRISA AT [facility] WHO STATES INSURANCE IS STATING PATIENT IS NOT MEDICALLY STABLE FOR SNF DUE TO BLOOD IN THE STOOL AND NO UPDATED PT/OT NOTES. CM NOTIFIED ATTENDING WHO STATES PATIENT IS REFUSING THE COLONOSCOPY AT THIS TIME AND THAT HE IS STABLE ENOUGHT FOR DISCHARGE TO SNF. CM FAXED UPDATED CLINICAL TO [facility]. INSURANCE AUTH IS PENDING AT THIS TIME.
--- NOTE | 2018-09-06 15:46 | NUR ---
WOUND FOLLOW UP: PT. WAS SEEN TODAY BY DR. JENSEN AND MYSELF. PT. WOUND IS STABLE AT THIS TIME. RECOMMENDATIONS: CONTINUE WITH CURRENT PLAN OF CARE. PT. AND STAFF NURSE WERE INSTRUCTED ON PLAN OF CARE.
[2018-09-06 16:04] VITALS: BP 146/77
[2018-09-06 22:53] LABS: HEMATOCRIT 29.2 % (42.0-52.0); HEMOGLOBIN 9.8 gm/dL (14.0-18.0)
[2018-09-07 00:46] VITALS: BP 160/73
--- NOTE | 2018-09-07 04:10 | NUR ---
ASSUMED PT CARE AT 1900. VSS. PT A&0X4. FLAT AFFECT. ASSESSMENTS AND MEDS GIVEN ARE DOCUMENTED. PT REFUSED TO TAKE THE FULL DOSE OF LANTUS 20U. HE ONLY WANTED 10U. HE ALSO REFUSED TO TAKE THE RECOMMENDED 4U OF SSI HUMALOG. PT IS STILL AFIB ON THE MONITOR, HR CONTROLLED. COMPLAINED OF MOUTH PAIN LAST NIGHT, TRAMADOL ADMINISTERED; COMPLETE PAIN REFLIEF REPORTED. PT TOLERATED PO MEDS WELL. IS ABLE TO FEED SELF. PT IS STILL REFUSING TURNS, LOW AIR LOSS PUMP MATTERESS IN PLACE. PT PREFERS FINGERSTICKS ON FINGER PADS AND NOT ON THE SIDE OF THE FINGER. NO FURTHER COMPLAINTS OF DISCOMFORTS OR DISTRESS. HE RESTED WELL ALL NIGHT, WILL CONTINUE TO MONITOR PER POC.
[2018-09-07 04:37] VITALS: BP 144/66
[2018-09-07 08:06] VITALS: BP 153/70
[2018-09-07 11:10] VITALS: BP 147/69
[2018-09-07 16:59] VITALS: BP 138/62
--- NOTE | 2018-09-07 18:33 | NUR ---
ASSUMED CARE AT 0700, SHIFT ASSESMENT DONE, MEDS GIVEN, VSS. REPROTED PAIN, PRN PAIN MED GIVEN. DENIES NAUSEA. WOUND CARE DRESSING CHANGE DONE. ACHS, DID NOT NEED ANY COVERAGE THROUGHT OUT THE DAY. REFUSED TO TURN, ENCOURAGED TO TURN MUCH POSSIBLE. WILL CONTINUE TO ASSESS AND ASSIST WITH ADLs NEEDED.
[2018-09-07 19:44] VITALS: BP 155/92
[2018-09-08 04:04] VITALS: BP 143/74
--- NOTE | 2018-09-08 04:14 | NUR ---
Patient making slow progress towards outcome goals. Vital signs and rhythm stable. Fall precautions in place. Uses call light appropriately for needs. Sleeping at short intervals.
[2018-09-08 07:30] VITALS: BP 152/77
[2018-09-08 11:30] VITALS: BP 153/80
--- NOTE | 2018-09-08 15:39 | NUR ---
PT ALERT AND ORIENTED TIMES FOUR. VSS, 99%RA, AFIB CONTROLLED ON TELE. PT DENIES PAIN/SOA/N/V AT THIS TIME. MED SOFT STOOL TODAY NOT BLOOD NOTED. DRESSING TO RIGHT BKA CHANGED. PT TOLERATES MEDS AND MEALS. PT SLOWLY PROGRESSING TOWRADS POC GOALS.
[2018-09-08 16:44] VITALS: BP 158/78
[2018-09-08 19:26] VITALS: BP 158/85
--- NOTE | 2018-09-09 04:00 | NUR ---
Patient making slow progress towards outcome goals. Vital signs and rhythm stable, Good pain control with Tramadol. Patient declined scheduled Lantus last night as BS was 88. No active signs of bleeding. AM labs pending.
[2018-09-09 04:27] VITALS: BP 144/68
[2018-09-09 05:37] LABS: BASOPHILS 0.9 % (0.0-2.0); EOSINOPHILS 1.1 % (0.0-3.0); HEMATOCRIT 28.4 % (42.0-52.0); HEMOGLOBIN 9.7 gm/dL (14.0-18.0); LYMPHOCYTES 35.1 % (24.0-44.0); MCH 28.1 pg (26.0-34.0); MCHC 34.1 g/dL (28.0-37.0); MCV 82.6 fL (80.0-100.0); MONOCYTES 9.6 % (1.0-8.0); PLATELET COUNT 203 thou/uL (150-400); POLYS 53.3 % (36.0-66.0); RBC 3.44 mil/uL (4.50-6.00); RDW 16.7 % (10.5-14.5); WBC 5.7 thou/uL (4.0-11.0)
[2018-09-09 05:52] LABS: CALCIUM 8.2 mg/dL (8.5-10.1); CREATININE 1.3 mg/dL (0.7-1.3); POTASSIUM 3.7 mmol/L (3.5-5.1)
[2018-09-09 07:29] VITALS: BP 163/99
--- NOTE | 2018-09-09 10:00 | NUR ---
DP SENT UPDATES TO [employer], SENT A MESSAGE TO BRISA/[facility] TO LET HER KNOW TO EXPECT UPDATES VIA FAX.
--- NOTE | 2018-09-09 10:45 | NUR ---
Nutrition: pt seen per followup. Continues to struggle with mouth sores/mucositis but is slightly improved. Is ordering softer foods and tolerating better eating small amounts throughout the day. OPt is not drinking Duran or glucerna. Agrees ensure pudding will be better tolerated- will offer BID. Obtained further food preferences and continue encourage oral intake as tolerated. GI rec EGD/colonscopy but pt refusing. Possible D/C soon. Continue low risk.
--- NOTE | 2018-09-09 12:11 | NUR ---
WOUND FOLLOW UP: PT. WAS SEEN TODAY BY DR. JENSEN AND MYSELF. PT. WOUND IS CLINICALLY BETTER TODAY AND PT. IS IN GOOD SPIRITS. RECOMMENDATIONS: CONTINUE WITH CURRENT PLAN OF CARE. PT. AND STAFF NURSE WERE INSTRUCTED ON PLAN OF CARE.
--- NOTE | 2018-09-09 14:56 | NUR ---
DISCHARGE NOTE: YOLI reviewed chart and spoke with nursing and attending physician. Pt is medically stable for discharge back to [facility] today. Awaiting insurance authorization at this time. Chart copy ordered. Pt will need stretcher van transportation. partner integration planner faxed clinical updates to [place] [facility] lia[facility]. YOLI is following to assist as needed with discharge planning.
[2018-09-09 16:57] VITALS: BP 142/73
[2018-09-09 18:54] VITALS: BP 143/79
--- NOTE | 2018-09-09 22:36 | NUR ---
PATIENTS BLOOD GLUCOSE WAS 119 AT HS. HE REFUSED TO TAKE HIS ENTIRE DOSE OF GARGLINE SUBQ. HE ALLOWED NURSE TO ONLY GIVE 10 UNITS OF THIS MEDICATION. HE REFUSED THE SHORT ACTING NOVOLOG COMPLETELY. HE STATED THAT HE KNOWS WHAT HE NEEDS.
[2018-09-10 03:17] VITALS: BP 149/79
--- NOTE | 2018-09-10 04:59 | NUR ---
resting quietly tonight. denies needs. using urinal, refuses to allow turns tonight. he tries to reposition himself in bed and the turning feature on the bed alleviates pressure. progressing toward goals. he is expecting to be discharged today.
[2018-09-10 08:00] VITALS: BP 150/82
--- NOTE | 2018-09-10 11:38 | NUR ---
DP FAXED TODAY'S PT AND OT NOTES TO [facility], TAISHA NOTIFIED BRISA AT [facility] TO EXPECT THEM. CM TO FOLLOW.
[2018-09-10] MEDS ORDERED: IPRAT-ALBUT 0.5-3 ML INH (12:00)
[2018-09-10] MEDS ORDERED: VALTREX 500 MG500 MG PO (12:00)
[2018-09-10] MEDS ORDERED: ELIQUIS5 MG PO (12:04)
[2018-09-10 12:06] VITALS: BP 152/75
--- NOTE | 2018-09-10 15:21 | NUR ---
ASSUMED CARE AT 0700. AXOX4. CALLS APPROPRIATELY. VOIDS PER URINAL. R AMPUTEE SITE INFECTION. PEDDING PLACEMENT. AWAITING WOUND CARE TO BRING THE PURACOL FOR R AMPUTEE SITE CARE. NO C/O PAIN. TOLERATED PT WELL. THERE IS AN ORDER TO D/C PT BACK TO [facility] WHEN PLACEMENT FINALIZE. NO S/S ACUTE DISTRESS NOTED OR REPORTED AT THIS TIME. WILL CONT TO MONITOR ANY CHANGES IN CONDITION.
--- NOTE | 2018-09-10 15:26 | NUR ---
ON-GOING ASSESSMENT: CM RECEIVED A CALL FROM [facility] STATING INSURANCE IS REQUESTING PT/OT NOTES FROM TODAY. CM REACHED OUT TO [employer] OPERATOR IN ATTEMPTS TO GET PATIENT SEEN ADELA. PHYSICAL THERAPY NOTE WAS PUT IN THIS AFTERNOON AND CM ATTEMPTED TO PAGE OT OVERHEARD TO GET PATIENT SEEN ADELA BUT NOT RETURN CALL AT THIS TIME. CM WILL CONTINUE TO FOLLOW INSURANCE AUTH IS PENDING.
[2018-09-10 16:00] VITALS: BP 153/91
--- NOTE | 2018-09-10 16:48 | NUR ---
WOUND FOLLOW UP: PT. WAS SEEN TODAY BY DR. JENSEN AND MYSELF. PT. WOUND IS BEEFY RED WITH GRANULATION TISSUE. WOUND IS HEALING WELL. RECOMMENDATIONS: CONTINUE WITH CURRENT PLAN OF CARE. PT. AND STAFF NURSE WERE INSTRUCTED ON PLAN OF CARE.
[2018-09-10 20:45] VITALS: BP 154/80
--- NOTE | 2018-09-11 05:29 | NUR ---
ASSUMED PT CARE AT 1900 WITH NO SIGN OF DISTRESS NOTED. PT IS ALERT AND ORIENTED WITH NO SIGN OF DISTRESS NOTED. BLOOD SUGAR CHECKED. SCHEDULED MED ADMINISTERED TO PT. PT IS STABLE AND IN BED, VITAL SIGN STABLE. DENIES ANY PAIN, DENIES ANY FURTHER NEEDS AT THIS TIME.
[2018-09-11 06:00] VITALS: BP 144/74
[2018-09-11 08:16] VITALS: BP 151/88
--- NOTE | 2018-09-11 09:30 | NUR ---
A&0X4, STATES RT TX MAKE HIM COUGH, REVIEWED CXR, ENCOURAGED HIM TO EITHER STOP REFUSING RT TX BUT TO ALSO ENSURE HE'S DOING HIS DEEP SLOW INHALATIONS/EXHALATIONS EVEN IF IT MAKES HIM COUGH, RA, ENCOURAGED HIM TO USE CALL LIGHT FOR ANY NEEDS, POSSIBLE D/C, HAS MENTIONED MINIMAL APPETITE, ENCOURAGED TO HYDRATE, HE'S HAD TWO EXTRA CUPS OF LIQ THIS A.M.
[2018-09-11 12:00] VITALS: BP 142/83
--- NOTE | 2018-09-11 12:08 | NUR ---
ON-GOING ASSESSMENT: CM REVIEWED CHART AND SPOKE WITH LIASON AT [facility]. PATIENTS IS MEDICALLY READY FOR DISCHARGE AND LIASON IS AWARE. CM FAXED UPDATED CLINICAL TO BRISA AT [facility] WHO IS STILL WAITING ON ANSWER FROM [place] FOR POSSIBLE AUTH. CM WILL CONTINUE TO FOLLOW TO ASSIST NEEDED.
[2018-09-11 16:51] VITALS: BP 153/92
[2018-09-11 18:59] VITALS: BP 132/111
[2018-09-12 04:03] VITALS: BP 158/88
--- NOTE | 2018-09-12 04:48 | NUR ---
PAIN MANAGEMENT WITH TRAMADOL WORKS FOR PT. PT NOT WANTING TO ROTATE ON Q2 BASIS. ALSO STATES HE DOES NOT WANT BREATHING TX. DC MEDICATIONS ARE IN THE ICU NURSE ALONG WITH ALL OTHER DC PAPERWORK BACK TO [facility]. HOURLY ROUNDING.
[2018-09-12 08:55] VITALS: BP 156/86
--- NOTE | 2018-09-12 10:40 | NUR ---
on-going assessment: CM REVIEWED CHART AND SPOKE WITH LIASON AT FROM [facility] WHO STATES THEY HAVE INSURANCE AUTH TO ACCEPT PATIENT TODAY. CM NOTIFIED PATIENT AND HE IS AGREEABLE TO RETURN TO [facility]. CHART COPY WAS ORDERED AND CANDY MAKER HELPER IS UPDATING IT. TRANSPORTATION HAS BEEN ARRANGED (BARIATRIC STRETCHER) BY [facility]ON FOR 1530 PICKUP. CM NOTIFIED BEDSIDE RN WELL PROVIDED HER WITH NUMBER FOR REPORT. CM FAXED DISCHARGE PAPERWORK TO FACILITY AND CONFIRMED THEY RECEIVED IT. LATISHA CONTACTED PATIENTS SISTER AUG TO NOTIFY HER. CM NOTIFIED ATTENDING. PT REPORTS NO FURTHER NEEDS FROM LATISHA AT THIS TIME. CASE CLOSED.
[2018-09-12 12:00] VITALS: BP 144/83
--- NOTE | 2018-09-12 15:13 | 2DMMODE ---
[facility] [address] [place] [address] 2 D/M-MODE ECHOCARDIOGRAM Name: SONIA BELL Room #: 356-P [facility] IN M.R.#: [id number] Admission: 08/24/18 Attend Phys: Kendall Sainz MD Discharge: Date of : 53 Date of Service: 08/26/18 0931 Report #: [id number] THIS REPORT FOR: //name// APPROVED REPORT Study performed: 08/26/2018 08:23:44 EXAM: Comprehensive 2D, Doppler, and color-flow Echocardiogram Patient Location: ICU Room #: 247 Status: routine BSA: 2.85 HR: 109 bpm BP: 118/57 mmHg Rhythm: Atrial Fibrillation Other Information Study Quality: Fair Technically limited study due to morbid obesity. Indications Afib, respiratory failure, sepsis, bacteremia. Echo Enhancing Agent Indication: Endocardial border delineation Agent(s) / Amount(s) Used: Optison 5 cc 2D Dimensions RVDd: 51.11 mm IVSd: 10.12 (7-11mm) LVOT Diam: 23.80 (18-24mm) LVDd: 54.88 mm PWd: 10.64 (7-11mm) Ascending Ao: 37.32 (22-36mm) LVDs: 43.21 (25-40mm) Aortic Root: 37.97 mm Volumes Left Atrial Volume (Systole) Single Plane 4CH: 104.71 mL Single Plane 2CH: 75.89 mL Aortic Valve AoV Peak Fabio.: 1.17 m/s AO Peak Gr.: 7.70 mmHg LVOT Max P.86 mmHg LVOT Max V: 0.84 m/s CARLITOS Vmax: 3.21 cm2 Mitral Valve [facility] [place] [address] 2 D/M-MODE ECHOCARDIOGRAM Name: SONIA BELL Room #: [address] [place] [address] IN ..#: [id number] Admission: 08/24/18 Attend Phys: Kendall Sainz MD Discharge: Date of : 53 Date of Service: 08/26/18 0931 Report #: [id number] MV Decel. Time: 152.89 ms MV E Max Fabio.: 1.16 m/s Pulmonary Valve PV Peak Fabio.: 0.49 m/s PV Peak Gr.: 0.96 mmHg Tricuspid Valve TR Peak Fabio.: 2.70 m/s RAP Estimate: 15.00 mmHg TR Peak Gr.: 29.00 mmHg PA Pressure: 44.00 mmHg Left Ventricle The left ventricle is normal size. There is normal left ventricular wall thickness. Left ventricular systolic function is mildly decreased. LVEF is 45%. This study is not technically sufficient to allow evaluation of the LV diastolic function due to atrial fibrillation. Right Ventricle Right ventricle is dilated. Right ventricle is hypokinetic. Atria Left atrium is dilated. Right atrium is dilated. Aortic Valve The aortic valve is poorly visualized. Trace aortic regurgitation. There is no aortic valvular stenosis. Mitral Valve Mitral valve leaflets are mildly thickened. Mild mitral annular calcification. Mild mitral regurgitation. No evidence of mitral valve stenosis. Tricuspid Valve Tricuspid valve is not well visualized. Moderate to severe tricuspid regurgitation. Estimated PAP is 40-45mmHg. Pulmonic Valve Pulmonic valve is poorlyl visualized. Great Vessels Aortic root is borderline dilated. The ascending aorta is normal in size. IVC is [facility] [address] [place] [address] 2 D/M-MODE ECHOCARDIOGRAM Name: SONIA BELL Room #: 356-P [facility] IN M.R.#: [id number] Admission: 08/24/18 Attend Phys: Kendall Sainz MD Discharge: Date of : 53 Date of Service: 08/26/18 0931 Report #: [id number] dilated and collapses <50% with inspiration. Pericardium There is no pericardial effusion. <Conclusion> Left ventricular systolic function is mildly decreased. LVEF is 45%. Right ventricle is dilated and hypokinetic. Both atria are dilated. The aortic valve is poorly visualized. Trace aortic regurgitation, no stenosis. Mitral valve leaflets are mildly thickened. Mild mitral annular calcification. Mild mitral regurgitation. Moderate to severe tricuspid regurgitation. Estimated pulmonary artery pressure of 40-45mmHg. There is no pericardial effusion. <ELECTRONICALLY SIGNED> By: Leon Ugalde MD, [facility] 08/26/18930 0 0 Leon Ugalde MD, [facility] /INF
--- NOTE | 2018-09-12 15:30 | NUR ---
WOUND FOLLOW UP: PT. WAS SEEN TODAY BY DR. JENSEN AND MYSELF. PT. WOUND IS HEALING WITH PRESENCE OF GRANULATION TISSUE. RECOMMENDATIONS: CONTINUE WITH CURRENT PLAN OF CARE. PT. AND STAFF NURSE WERE INSTRUCTED ON PLAN OF CARE.
--- NOTE | 2018-09-12 15:46 | NUR ---
PT ALERT AND ORIENTED TIMES FOUR. VSS, 98%RA, AFIB CONTROLLED ON TELE. DENIES PAIN/SOA. DRESSING TO RIGHT BKA CHANGED PER WOUND CARE/NURSE. PT TOLERATES MEDS AND MEALS. PLANS TO DISCHARGE TODAY. PT PROGRESSING TOWRADS POC GOALS.
== END 2018-09-12 15:57 | DRG 500 ==
LOC: ER 07:38 → 3W 08:37 → EROBS 08:37 → ICU 08:37 → 3W 08-28 06:34
PROVIDERS: Emergency Medicine; Hospitalist; Internal Medicine; Internal Medicine Gastroenterology; Internal Medicine Nephrology; Internal Medicine Pulmonary Disease; Nurse Practitioner; ADMIT Hospitalist
PROC: 02HV33Z Insertion of Infusion Device into Superior Vena Cava, Percutaneous Approach (ICD-10-PCS; principal; 2018-08-24)
PROC: 03HY32Z Insertion of Monitoring Device into Upper Artery, Percutaneous Approach (ICD-10-PCS; principal; 2018-08-24)
PROC: 0KDQ0ZZ Extraction of Right Upper Leg Muscle, Open Approach (ICD-10-PCS; 2018-09-05)
DX: T87.43 Infection of amputation stump, right lower extremity (principal); A40.9 Streptococcal sepsis, unspecified; R65.21 Severe sepsis with septic shock; N17.0 Acute kidney failure with tubular necrosis; G93.41 Metabolic encephalopathy; J96.91 Respiratory failure, unspecified with hypoxia; J18.9 Pneumonia, unspecified organism; R65.20 Severe sepsis without septic shock; I13.0 Hypertensive heart and chronic kidney disease with heart failure and stage 1 through stage 4 chronic kidney disease, or unspecified chronic kidney disease; L03.115 Cellulitis of right lower limb; I47.1 Supraventricular tachycardia; G93.40 Encephalopathy, unspecified; I50.30 Unspecified diastolic (congestive) heart failure; B37.0 Candidal stomatitis; M86.8X8 Other osteomyelitis, other site; E87.0 Hyperosmolality and hypernatremia; Z68.43 Body mass index [BMI] 50.0-59.9, adult; I48.91 Unspecified atrial fibrillation; N18.9 Chronic kidney disease, unspecified; E11.65 Type 2 diabetes mellitus with hyperglycemia; E11.22 Type 2 diabetes mellitus with diabetic chronic kidney disease; E11.51 Type 2 diabetes mellitus with diabetic peripheral angiopathy without gangrene; E11.40 Type 2 diabetes mellitus with diabetic neuropathy, unspecified; I48.2 Chronic atrial fibrillation; N40.0 Benign prostatic hyperplasia without lower urinary tract symptoms; D64.9 Anemia, unspecified; E66.01 Morbid (severe) obesity due to excess calories; I95.9 Hypotension, unspecified; I87.8 Other specified disorders of veins; E78.5 Hyperlipidemia, unspecified; I27.20 Pulmonary hypertension, unspecified; G47.33 Obstructive sleep apnea (adult) (pediatric); K59.00 Constipation, unspecified; Y83.5 Amputation of limb(s) as the cause of abnormal reaction of the patient, or of later complication, without mention of misadventure at the time of the procedure; E11.69 Type 2 diabetes mellitus with other specified complication; K12.1 Other forms of stomatitis; K12.30 Oral mucositis (ulcerative), unspecified; Z88.1 Allergy status to other antibiotic agents; Z88.0 Allergy status to penicillin; Z88.2 Allergy status to sulfonamides; Z88.8 Allergy status to other drugs, medicaments and biological substances
CPT/HCPCS: 10078; 10879; 85026

== ENCOUNTER 2019-02-19 18:38 | Inpatient (IN) | payer OTHER ==
[~2019-02-19] VITALS: Ht 188 cm; Wt 156.2 kg
[2019-02-19 18:38] VITALS: BP 127/65
[~2019-02-19 18:38] MED LIST: BISACODYL SUPP10 MG RECTAL; CIPRO500 MG PO; DEMADEX20 MG PO; ELIQUIS5 MG PO; FLOMAX0.4 MG PO; IPRAT-ALBUT 0.5-3 ML INH; IRON325 PO; LEVEMIR SUBQ; LOPRESSOR50 PO; MIRALAX17 GM PO; NEURONTIN 300300 M1 PO; OXYCONTIN10 M1 PO; PROBIOTIC1 EAC1 PO; PROTONIX40 M1 PO; SENNA8.6 MG PO; SIMVASTATIN20 MG PO; THERAGRAN STRE1 EACH PO; TYLENOL325 MG PO; VALTREX 500 MG500 MG PO; VITAMIN D1000 UNI1 PO; VITAMINC500 PO
[2019-02-19 19:22] LABS: ABSOLUTE NEUTROPHILS 2.7 thou/uL (1.4-8.2); BASOPHILS 0.7 % (0.0-2.0); EOSINOPHILS 5.7 % (0.0-3.0); HEMATOCRIT 28.8 % (42.0-52.0); HEMOGLOBIN 9.7 gm/dL (14.0-18.0); LYMPHOCYTES 36.8 % (24.0-44.0); MCH 29.2 pg (26.0-34.0); MCHC 33.8 g/dL (28.0-37.0); MCV 86.5 fL (80.0-100.0); MONOCYTES 7.8 % (1.0-8.0); PLATELET COUNT 137 thou/uL (150-400); RBC 3.33 mil/uL (4.50-6.00); RDW 16.5 % (10.5-14.5); WBC 5.4 thou/uL (4.0-11.0)
[2019-02-19 19:27] LABS: CALCIUM 9.3 mg/dL (8.5-10.1); CREATININE 5.1 mg/dL (0.7-1.3); POTASSIUM 4.8 mmol/L (3.5-5.1)
[2019-02-19 19:34] LABS: TOTAL BILIRUBIN 0.4 mg/dL (<0.1-1.0); TOTAL PROTEIN 6.8 g/dL (6.4-8.2)
[2019-02-19 21:18] LABS: INR 1.1
[2019-02-19 22:26] VITALS: BP 140/75
[2019-02-19 22:49] VITALS: BP 145/87
--- NOTE | 2019-02-19 23:19 | NUR ---
PT ARRIVED TO THE UNIT VIA CART, TRANSFERED USING Z SLIDER, CLARIFIED WITH SHERRON NON DESTRUCTIVE EVALUATION TECHNICIAN REGARDING MIDLINE POLICY WHICH IS PRESENT WITH ADMISSION, SAID MIDLINE DOES NOT NEED TO HAVE XRAY SINCE IT IS NOT A CENTRAL LINE, ANNELISE HERE ASSESSING PATIENT. GIVEN ROOM ORIENTATION, CALL LIGHT WITHIN REACHED, BED ALARM ON.
[2019-02-20 03:10] VITALS: BP 112/51
--- NOTE | 2019-02-20 05:45 | NUR ---
STILL NOT VOIDED, DRESSING TO RIGHT STUMP WAS CHANGED, LEFT LEG WITH EDEMA, WRAP APPLIED, ON ROOM AIR, PT IN GOOD MOOD LAST NOC, WAS SINGING BEFORE GOIDN TO BED, BED ALARM ON, TOLERATING ORAL INTAKE, MONITORED.
[2019-02-20 05:51] LABS: HEMATOCRIT 27.7 % (42.0-52.0); HEMOGLOBIN 9.4 gm/dL (14.0-18.0); MCH 29.5 pg (26.0-34.0); MCHC 33.8 g/dL (28.0-37.0); MCV 87.3 fL (80.0-100.0); RBC 3.17 mil/uL (4.50-6.00); RDW 16.5 % (10.5-14.5); WBC 5.1 thou/uL (4.0-11.0)
[2019-02-20 06:03] LABS: CALCIUM 8.8 mg/dL (8.5-10.1); POTASSIUM 4.5 mmol/L (3.5-5.1)
--- NOTE | 2019-02-20 07:08 | NUR ---
DR TAYLOR ROUNDED, BLADDER SCANNED PATIENT, 568 ML, ORDER TO INSERT PAVON. DAY RN AWARE.
[2019-02-20 07:33] VITALS: BP 141/77
--- NOTE | 2019-02-20 08:27 | NUR ---
RECEIVED PT CARE APPROX 0715. A/O. C/O HEADACHE- TYLENOL GIVEN. NO NOTED SOA. NO NV. BLE WRAP CDI. PT REFUSING CATHETER THIS AM. PT ABLE TO VOID 450 BLADDER SCANNED- PVR 0. PAGED DR. CUELLAR TO UPDATE- WAITING FOR CALL BACK. WILL CONT. TO MONITOR.
[2019-02-20 14:18] VITALS: BP 125/75
[2019-02-20 17:59] VITALS: BP 127/74
[2019-02-20 19:47] VITALS: BP 144/78
--- NOTE | 2019-02-20 21:25 | NUR ---
ASSUMED CARE OF THE PT AT 1900 PM. ALERT ET ORIENTED X 3. MAKES NEEDS KNOWN. THE PT IS IN BED AT THIS TIME. HAD A LARGE BM PER BEDPAN. HAS A MIDLINE IN PLACE IN HIS RIGHT ARM. HEART RATE REGULAR. LUNGS CLEAR BILATERALLY, RESP., EVEN, AND UNLABORED. +BS HEARD IN ALL 4 QUADRANTS. ABD SOFT ET NONTENDOR, THE PT IS OBESE. HAS A RIGHT BKA WITH AN TATYANA WRAP OVER IT. IV FLUIDS ARE INFUSING. DENIES PAIN AT THIS TIME. CALL LIGHT WITHIN REACH.
[2019-02-21 04:52] VITALS: BP 117/73
--- NOTE | 2019-02-21 04:56 | NUR ---
the pt was lying in bed at this time, this residential mortgage underwriter obtained labs which were taken from his Midline central line. denies pain at this time, dressings are intact to his stump and to his left leg. call light within reach.
[2019-02-21 05:16] LABS: ALBUMIN 2.6 g/dL (3.4-5.0); CALCIUM 8.2 mg/dL (8.5-10.1); CREATININE 4.6 mg/dL (0.7-1.3); PHOSPHORUS 4.6 mg/dL (2.5-4.9); POTASSIUM 5.1 mmol/L (3.5-5.1)
--- NOTE | 2019-02-21 06:07 | NUR ---
THE PT VOIDED EARLIER IN THE SHIFT, 600 CC OF CLEAR NANCY URINE. WHEN THIS FRENCH TRANSLATOR WENT TO SEE IF THE PT WOULD VOID, SINCE HE HAD NOT BEEN BLADDER SCANNED YET THIS SHIFT, HE STATED THAT HE DID NOT NEED TO VOID. CALL LIGHT WITHIN REACH,
--- NOTE | 2019-02-21 06:26 | NUR ---
THE PT CALLED OUT TO THE NURSES' STATION, STATING THAT HE HAD VOIDED. THIS CORPORATE AIRCRAFT MECHANIC BLADDER SCANNED HIM AND IT SHOWED 00.
[2019-02-21 08:45] VITALS: BP 150/65
--- NOTE | 2019-02-21 08:48 | HC ---
[facility] [place] [address] CONSULTATION Name: SONIA BELL Room #: 463-P ADM IN M.R.#: [id number] Admission: 02/19/19 ������������������ Attend Phys: Kendall Sainz MD Discharge: ������������������ Date of : 53 Report #: [id number] THIS REPORT FOR: //name// CC: Kendall Daniels REASON FOR THE CONSULTATION: Acute kidney injury. REASON FOR THE PRESENTATION: Abnormal labs and not feeling well. HISTORY OF PRESENT ILLNESS: A 63-year-old with past medical history of diabetes mellitus and hypertension. He also had repeated episodes of acute kidney injury and required some dialysis in the past. He has AFib, osteomyelitis. He was recently discharged from the [facility] after being investigated for an abdominal pain. He tells me that he was at [facility] and got transferred to [facility] at the [place] because of this abdominal pain. He continued to have nausea and vomiting and presented for further evaluation. Details of those previous hospitalizations are not available for me. The patient was discharged from the hospital back in August with a creatinine of 1.3; however, on his presentation yesterday, he was found to have a creatinine of 5.1, mandating Nephrology consultation. As I stated, he is known to have diabetes mellitus and had extensive complications related to that, including bilateral lower knee amputation. During the hospitalizations in August, he was found to have strep bacteremia with sepsis. PAST MEDICAL HISTORY: 1. Diabetes mellitus. 2. Hypertension. 3. Chronic kidney disease. 4. Acute kidney injury. 5. Peripheral vascular disease. 6. Status post right below-knee amputation. 7. AFib. 8. Diabetic neuropathy. FAMILY HISTORY: Significant for diabetes mellitus and hypertension. SOCIAL HISTORY: He resides in a different facility. No drug or alcohol abuse. REVIEW OF SYSTEMS: GENERAL: Significant for weakness. CARDIOVASCULAR: No chest pain or palpitation. PULMONARY: No cough or hemoptysis. GASTROINTESTINAL: Significant for nausea, vomiting and abdominal pain. [facility] [address] [place] [address] CONSULTATION Name: SONIA BELL Room #: [address] [place] [address] IN M.R.#: [id number] Admission: 02/19/19 ������������������ Attend Phys: Kendall Sainz MD Discharge: ������������������ Date of : 53 Report #: [id number] GENITOURINARY: Decreased urine output. SKIN: He has stump wound on the right below-knee amputated site. Dressing is applied over the left lower extremity. MEDICATIONS: Listed amongst his medications: 1. Flomax. 2. Metoprolol. 3. Simvastatin. 4. Valcyte. PHYSICAL EXAMINATION: GENERAL: Alert, oriented. VITAL SIGNS: Blood pressure 112/51, temperature 36.4. HEAD AND NECK: No jugular venous distention. CHEST: No crackles. CARDIOVASCULAR: No rub detected. ABDOMEN: Obese. LOWER EXTREMITIES: Dressing applied over the left lower extremity and the right below-knee amputated site. LABORATORY DATA: Laboratory values reviewed. Sodium 141, BUN is 96, creatinine is 5. White blood cell count is 5.1, platelets are 129,000. U/A is not received. Ultrasound is not remarkable. Abdominal x-ray, nonspecific finding. ASSESSMENT, IMPRESSION AND PLAN: 1. Acute kidney injury. 2. Chronic kidney disease. 3. Diabetes mellitus with all of its complications. 4. Hypertension. 5. Peripheral vascular disease. Source of the deterioration of the patient's renal function is not clear to me. We will start the appropriate investigation. He had been taking torsemide for some time and his high BUN-to- creatinine ratio with his current volume status suggests that this might be prerenal. 6. Continue with IV fluid. 7. Discontinue diuretics. 8. Wound care. 9. [place] [address] CONSULTATION Name: SHRUTHI BELLH Room #: 463-P ADM IN M.R.#: [id number] Admission: 02/19/19 ������������������ Attend Phys: Kendall Sainz MD Discharge: ������������������ Date of : 53 Report #: [id number] 10. Blood sugar control. 11. We will continue to follow. ��������������������������������������������� <ELECTRONICALLY SIGNED> ���������������������������������������� By: Krystin Daniels MD ��������������������������������������������� 02/21/19 0848 0731 1145 Krystin Daniels MD /nt
--- NOTE | 2019-02-21 14:11 | NUR ---
Nutrition: pt admitted with abdominal pain and abnormal labs. Seen due to consult related to nonhealing stump incision. Hx R BKA. Fair appetite but tends to do much better if he can order meals. Assisted pt in ordering food preferences. Did take some supplements prior to admit. Agrees to ensure max and will switch to beneprotein if he dislikes. Discussed nutrient/protein needs. Hx MARGARET, renal on consult. BG 113-166. On ferrous sulfate. Extreme class 3 obesity with BMI 44. Pt feels he has gained weight recently although weight records do not reflect. Would benefit from MVI, ascorbic acid. Low risk
--- NOTE | 2019-02-21 14:17 | NUR ---
Nutrition: REC consider adding daily MVI, ascorbic acid for wound healing.
--- NOTE | 2019-02-21 19:59 | NUR ---
PT A&OX4, VSS, DENIES PAIN. PATIENT HAS DRESSING ON LEFT LEG AND RIGHT KNEE, BOTH C/D/I, PHOTOS PREVIOUSLY TAKEN, AWAITING WOUND CARE ORDERS. BLADDER SCAN DONE TODAY AND 0ML READ. FALL BUNDLE IN PLACE, WILL CONTINUE TO MONITOR.
[2019-02-21 20:30] VITALS: BP 119/72
--- NOTE | 2019-02-22 03:04 | NUR ---
PATIENT AOX4 MAKES NEEDS KNOWN.PATIENT DENIED PAIN OR DISCOMFORT. PATIENT HAS A DRESSING ON R BKA, DRESSING C/D/I. PATIENT HAS LYMPEDEMA WRAPS ON RIGHT LEG AND DRESSING C/D/I. PATIENT DENIED PAIN OR DISCOMFORT.PATIENT IN BED ASLEEP AT THIS TIME BREATHING REGULAR AND UNLABOURED.
[2019-02-22 04:15] VITALS: BP 120/67
[2019-02-22 05:22] LABS: ALBUMIN 2.6 g/dL (3.4-5.0); CALCIUM 8.2 mg/dL (8.5-10.1); CREATININE 4.1 mg/dL (0.7-1.3); PHOSPHORUS 4.7 mg/dL (2.5-4.9); POTASSIUM 5.3 mmol/L (3.5-5.1)
[2019-02-22 07:25] VITALS: BP 121/70
[2019-02-22 14:55] VITALS: BP 134/74
--- NOTE | 2019-02-22 18:35 | NUR ---
PT A&OX4, VSS, DENIES PAIN. PATIENT HAS FLUIDS RUNNING ORDERED, DID HIS OWN BED BATH TODAY. AWAITING WOUND CARE INSTRUCTIONS, DRESSING ON RIGHT KNEE AND LEFT LE BOTH C/D/I. WILL CONTINUE TO MONITOR.
[2019-02-22 20:16] VITALS: BP 141/81
--- NOTE | 2019-02-22 21:59 | NUR ---
PATIENT AOX4 MAKES NEEDS KNOWN. PATIENT DENIED PAIN OR DISCOMFORT. PATIENT DRESSING ON LEFT STUMP IS C/D/I. RIGHT LYMPEDEMA WRAPS ARE C/D/I. HS MEDS GIVEN AND INSULIN PER ORDER.PATIENT TRANSFERED TO , REPORT GIVEN TO THE NURSE.
[2019-02-23 05:12] VITALS: BP 130/75
--- NOTE | 2019-02-23 06:07 | NUR ---
PT TRANSFERRE FROM AT APROX 2300. FROM [employer]. ABDOMIINAL PAIN. BEDREST. URINAL. DENIES PAIN. RESTING COMFORTABLY NO NEEDS VOICED. CALL LIGHT WITHIN REACH. WILL CONTINUE TO PROVIDE FREQUENT OBSERVATION.
[2019-02-23 08:22] VITALS: BP 155/81
[2019-02-23 08:27] LABS: ALBUMIN 2.6 g/dL (3.4-5.0); CALCIUM 9.1 mg/dL (8.5-10.1); CREATININE 3.6 mg/dL (0.7-1.3); PHOSPHORUS 4.6 mg/dL (2.5-4.9); POTASSIUM 5.2 mmol/L (3.5-5.1)
--- NOTE | 2019-02-23 10:38 | NUR ---
PT A&OX4, MID LINE INLINE INTACT IN R UA. USES URINAL AND BEDPAN. WILL CONT POC.
[2019-02-23 16:28] VITALS: BP 139/69
[2019-02-23 19:29] VITALS: BP 140/73
[2019-02-24 01:13] LABS: URINE BILIRUBIN NEGATIVE (Negative); URINE BLOOD 1+ (Negative); URINE CLARITY CLEAR; URINE COLOR YELLOW; URINE GLUCOSE-RANDOM* NEGATIVE (Negative); URINE KETONES NEGATIVE (Negative); URINE LEUKOCYTES-REFLEX NEGATIVE (Negative); URINE NITRITE-REFLEX NEGATIVE (Negative); URINE PROTEIN (DIPSTICK) 1+ (Negative); URINE SPECIFIC GRAVITY 1.015 (1.005-1.035); URINE UROBILINOGEN 0.2 E.U./dl (0.2-1.0)
[2019-02-24 01:38] LABS: BACTERIA-REFLEX None Seen /HPF (None Seen); CASTS None Seen /LPF (None Seen); CRYSTALS None Seen /LPF (None Seen); MUCUS None Seen strn/LPF (None Seen); SQUAMOUS None Seen /LPF (0-3); URINE RBC None Seen /HPF (0-2); URINE WBC-REFLEX None Seen /HPF (0-5)
--- NOTE | 2019-02-24 02:32 | NUR ---
ALERT AND ORIENTED. PLEASANT AND COOPERATIVE. DRSG TO RLE STUMP AND LLE ARE BOTH C/D/I. PT VOIDS PER URINAL. EATING AND DRINKING WELL. NO FURTHER CONCERNS.
[2019-02-24 04:32] VITALS: BP 146/76
[2019-02-24 05:52] LABS: ALBUMIN 2.7 g/dL (3.4-5.0); CALCIUM 8.3 mg/dL (8.5-10.1); CREATININE 3.3 mg/dL (0.7-1.3); PHOSPHORUS 4.6 mg/dL (2.5-4.9); POTASSIUM 5.6 mmol/L (3.5-5.1)
[2019-02-24 11:19] VITALS: BP 142/86
--- NOTE | 2019-02-24 11:48 | NUR ---
DISCHARGE PLANNING; PATIENT DC TODAY AND GO TO [facility], TAISHA SPOKE WITH SYMONE AT FACILITY AND HE ARRANGED STRETCHER PICKUP TODAY FROM 3 TO 330PM. TAISHA CALLED AND NOTIFIED PATIENT'S SISTER EMELYNTAISHA REQUESTED CC FROM [facility] ON 4E AND ALSO TOLD LILIAN TO LET NURSE KNOW OF DC TIME. DP WILL FAX DC PAPERWORK ONCE COMPLETED.
--- NOTE | 2019-02-24 12:10 | NUR ---
PT A&OX4. MIDLINE INTACT IN R UPPER ARM. PLANS ARE FOR PT TO RETURN TO [facility] TODAY AT 3-3:30. K+ 5.6 THIS AM AND TREATED WITH MEDICATION.
[2019-02-24] MEDS ORDERED: ELIQUIS5 MG PO (14:22)
--- NOTE | 2019-02-24 15:55 | NUR ---
DC ORDERS RECEIVED, PT CAME WITH MIDLINE WILL RETURN WITH IT. TRANSPORTERS PICKED UP PT BY GEORGE. REPORT CALLED TO NURSE ISAIAH.
--- NOTE | 2019-02-24 17:03 | NUR ---
ASSESSMENT-PT IS A [facility] C[facility] RESIDENT OF [facility] AND WILL RETURN BACK THERE TODAY. PT NEEDS ASSIST TO TRANSFER TO THE AND NEEDS ASSIST WITH HIS ADLS. ASKED DC WORM FARMER TO ARANGE TRANSFER BACK TODAY. CHART COPY HAS BEEN REQUESTED. CASE DISCUSSED WITH DR GILLIAM.
== END 2019-02-24 16:05 | DRG 682 ==
LOC: ER 18:38 → 4W 21:16 → EROBS 21:16 → 4E 22:47 → 4W 02-20 17:37 → 4E 02-22 22:12
PROVIDERS: Hospitalist; Internal Medicine Nephrology; Nurse Practitioner Family; ADMIT Hospitalist
DX: N17.9 Acute kidney failure, unspecified (principal); E43 Unspecified severe protein-calorie malnutrition; I13.0 Hypertensive heart and chronic kidney disease with heart failure and stage 1 through stage 4 chronic kidney disease, or unspecified chronic kidney disease; I48.91 Unspecified atrial fibrillation; E78.5 Hyperlipidemia, unspecified; I50.9 Heart failure, unspecified; E11.51 Type 2 diabetes mellitus with diabetic peripheral angiopathy without gangrene; K21.9 Gastro-esophageal reflux disease without esophagitis; N18.9 Chronic kidney disease, unspecified; E11.22 Type 2 diabetes mellitus with diabetic chronic kidney disease; E11.40 Type 2 diabetes mellitus with diabetic neuropathy, unspecified; N40.0 Benign prostatic hyperplasia without lower urinary tract symptoms; S81.001A Unspecified open wound, right knee, initial encounter; X58.XXXA Exposure to other specified factors, initial encounter; E87.5 Hyperkalemia; Z79.899 Other long term (current) drug therapy; Z83.3 Family history of diabetes mellitus; Z82.49 Family history of ischemic heart disease and other diseases of the circulatory system; Z88.1 Allergy status to other antibiotic agents; Z88.0 Allergy status to penicillin; Z88.2 Allergy status to sulfonamides; Z88.8 Allergy status to other drugs, medicaments and biological substances; Z89.511 Acquired absence of right leg below knee; Y93.89 Activity, other specified; Y92.89 Other specified places as the place of occurrence of the external cause; Y99.8 Other external cause status
CPT/HCPCS: 10040; 10084; 10783

== ENCOUNTER → 2019-11-26 | Outpatient (CLI) | payer OTHER ==
[~2019-11-26] VITALS: Ht 188 cm; Wt 154.2 kg
[~2019-11-26] MED LIST changes: +LEVEMIR FL100 UNIT/2 SUBQ; -LEVEMIR SUBQ; +NEURONTIN100 MG PO; +NOVOLOG100 UNIT/M SUBQ
[2019-11-26 09:09] LABS: HEMATOCRIT 36.8 % (42.0-52.0); HEMOGLOBIN 12.2 gm/dL (14.0-18.0); MCHC 33.2 g/dL (28.0-37.0); MCV 84.5 fL (80.0-100.0); RBC 4.36 mil/uL (4.50-6.00); RDW 16.5 % (10.5-14.5); WBC 8.7 thou/uL (4.0-11.0)
[2019-11-26 09:18] LABS: CALCIUM 9.9 mg/dL (8.5-10.1); CREATININE 1.8 mg/dL (0.7-1.3); POTASSIUM 4.5 mmol/L (3.5-5.1)
--- NOTE | 2019-11-26 13:09 | NUR ---
CALLED GILDA L[facility]PEZ [facility] AT [phone] TO ARRANGE TRANSPORTATION BACK TO FACILITY. TOLD THEM PT WOULD BE READY TO GO BY 1530 AND WOULD BE BROUGHT OUT IN W/C TO FRONT OF HOSPITAL.
== END | disposition home or self-care (01) ==
LOC: CATH 09:12
PROVIDERS: Nuclear Medicine Nuclear Cardiology
DX: I70.213 Atherosclerosis of native arteries of extremities with intermittent claudication, bilateral legs (principal); I70.238 Atherosclerosis of native arteries of right leg with ulceration of other part of lower leg; L97.819 Non-pressure chronic ulcer of other part of right lower leg with unspecified severity; I70.1 Atherosclerosis of renal artery; I13.0 Hypertensive heart and chronic kidney disease with heart failure and stage 1 through stage 4 chronic kidney disease, or unspecified chronic kidney disease; E11.22 Type 2 diabetes mellitus with diabetic chronic kidney disease; N18.9 Chronic kidney disease, unspecified; I50.9 Heart failure, unspecified; E78.5 Hyperlipidemia, unspecified; N40.0 Benign prostatic hyperplasia without lower urinary tract symptoms; I48.91 Unspecified atrial fibrillation; K21.9 Gastro-esophageal reflux disease without esophagitis; Z98.890 Other specified postprocedural states; Z79.899 Other long term (current) drug therapy; Z79.01 Long term (current) use of anticoagulants; Z88.0 Allergy status to penicillin; Z88.8 Allergy status to other drugs, medicaments and biological substances

== ENCOUNTER → 2019-12-10 | Outpatient (CLI) | payer OTHER | LOC: HYPER 09:01 | DX: T87.81 Dehiscence of amputation stump (principal); E11.622 Type 2 diabetes mellitus with other skin ulcer; L97.812 Non-pressure chronic ulcer of other part of right lower leg with fat layer exposed; L97.822 Non-pressure chronic ulcer of other part of left lower leg with fat layer exposed; I89.0 Lymphedema, not elsewhere classified; E11.42 Type 2 diabetes mellitus with diabetic polyneuropathy; E11.51 Type 2 diabetes mellitus with diabetic peripheral angiopathy without gangrene; E11.69 Type 2 diabetes mellitus with other specified complication; M86.8X8 Other osteomyelitis, other site; E46 Unspecified protein-calorie malnutrition; E78.5 Hyperlipidemia, unspecified; I11.0 Hypertensive heart disease with heart failure; I50.30 Unspecified diastolic (congestive) heart failure; I48.91 Unspecified atrial fibrillation; K21.9 Gastro-esophageal reflux disease without esophagitis; M62.521 Muscle wasting and atrophy, not elsewhere classified, right upper arm; M62.522 Muscle wasting and atrophy, not elsewhere classified, left upper arm; Z79.01 Long term (current) use of anticoagulants; Z79.4 Long term (current) use of insulin; Z87.891 Personal history of nicotine dependence; Y83.5 Amputation of limb(s) as the cause of abnormal reaction of the patient, or of later complication, without mention of misadventure at the time of the procedure ==

== ENCOUNTER → 2019-12-24 | Outpatient (CLI) | payer OTHER ==
[~2019-12-24] MED LIST changes: +TESSALON PERLE100 MG PO; +TRAMADOL 50 MG50 MG PO
== END ==
LOC: HYPER 08:46
DX: T87.89 Other complications of amputation stump (principal); E11.622 Type 2 diabetes mellitus with other skin ulcer; L97.822 Non-pressure chronic ulcer of other part of left lower leg with fat layer exposed; L97.812 Non-pressure chronic ulcer of other part of right lower leg with fat layer exposed; I89.0 Lymphedema, not elsewhere classified; E11.42 Type 2 diabetes mellitus with diabetic polyneuropathy; E11.51 Type 2 diabetes mellitus with diabetic peripheral angiopathy without gangrene; E78.5 Hyperlipidemia, unspecified; I48.91 Unspecified atrial fibrillation; I50.30 Unspecified diastolic (congestive) heart failure; R26.81 Unsteadiness on feet; M62.521 Muscle wasting and atrophy, not elsewhere classified, right upper arm; M62.522 Muscle wasting and atrophy, not elsewhere classified, left upper arm; Z79.01 Long term (current) use of anticoagulants; Z79.4 Long term (current) use of insulin; Y83.5 Amputation of limb(s) as the cause of abnormal reaction of the patient, or of later complication, without mention of misadventure at the time of the procedure

== ENCOUNTER 2019-12-25 12:51 | Inpatient (IN) | payer OTHER ==
[~2019-12-25] VITALS: Ht 182.9 cm; Wt 154.2 kg
--- NOTE | ~2019-12-25 | HC ---
[facility] [place] [address] CONSULTATION Name: SONIA BELL Room #: 356-P [facility] IN M.R.#: [id number] Admission: 12/25/19 Attend Phys: Allegra Maldonado MD Discharge: Date of : 53 Report #: [id number] THIS REPORT FOR: cc: Carlos Daniels,Krystin Felton MD ~ CC: Allegra Daniels DATE OF SERVICE: 12/26/2019 REASON FOR CONSULTATION: Acute kidney injury. REASON FOR PRESENTATION: Fever and chills. HISTORY OF PRESENT ILLNESS: This is a very well-known patient to me. He is a 64-year-old with diabetes mellitus, hypertension, AFib. He is known to have old complications related to diabetes mellitus including right below-knee amputation about 1-1/2 years ago. He is also known to have cardiomyopathy with an ejection fraction of 45%. Most recently and few weeks ago, the patient started to have left lower extremity wounds and he is followed appropriately by the wound care team. He also tells me that a few weeks ago, he had some debridements of the right below-knee stump by his wound care. He presented to the hospital reporting that he has not been feeling well with fever and chills. He denied any chest pain. No cough. No urinary symptoms. He had been treated with numerous courses of antibiotics. However, because of the worsening of his symptoms, he presented for further evaluation and management. He was found to have leukocytosis. The patient was admitted under the hospitalist team care. He was ruled out for COVID-19 infection. Creatinine on presentation was 1.0 and had risen to 2.4. The patient's blood pressure had been on the low side. He ran into some AFib issues and was initiated on diltiazem. ID consultation was obtained and the patient was started on appropriate antibiotic. From the renal perspective, I have seen this patient on multiple times. He carries a very complicated past history when it comes to his kidney function. He was at [facility] about a year and half ago. This was associated with sepsis related to his right lower extremity wound and has required some dialysis for some time; however, he recovered completely. The patient had an angiographic procedure on November 25. Creatinine at that time was 1.8. PAST MEDICAL HISTORY: 1. Acute kidney injury requiring hemodialysis in the past, resolved. 2. Diabetes mellitus for 20 years with old complication related to that. 3. Cardiomyopathy with an ejection fraction of around 40%. 4. Hyperlipidemia. 5. Below-knee amputation on the right side. 6. [place] [address] CONSULTATION Name: SONIA BELL Room #: 356-P [facility] IN M.R.#: [id number] Admission: 12/25/19 Attend Phys: Allegra Maldonado MD Discharge: Date of : 53 Report #: [id number] 7. Remote history of tunneled dialysis catheter. 8. Osteomyelitis of his right lower extremity. MEDICATIONS: 1. Insulin. 2. Gabapentin. 3. Metoprolol. 4. Iron. 5. Acetaminophen. ALLERGIES: PENICILLIN, SULFA. SOCIAL HISTORY: Denies drug or alcohol abuse. FAMILY HISTORY: Significant for diabetes mellitus. REVIEW OF SYSTEMS: GENERAL: Significant for fever and chills. CARDIOVASCULAR: No chest pain or palpitation. PULMONARY: No cough or hemoptysis. GASTROINTESTINAL: No nausea or vomiting. GENITOURINARY: No frequency, no urgency. MUSCULOSKELETAL: As per the history of present illness. PHYSICAL EXAMINATION: GENERAL: He is alert, oriented, in no apparent distress. VITAL SIGNS: Blood pressure is marginal at 97/47, temperature is 36.9. He had been hypotensive all through the last 24 hours. HEAD AND NECK: No jugular venous distention. CHEST: Decreased air entry bilaterally. CARDIOVASCULAR: No rub detected. ABDOMEN: Soft, obese. LOWER EXTREMITIES: Dressing applied over the right lower extremity stump. He has dressing applied over all of his left lower extremity. I did not expose those dressing. LABORATORY DATA: Reviewed. White blood cell count is 18.5, platelet is 234. Sodium is 134, BUN is 45, creatinine is 2.4. Vancomycin level is pending. UA with no protein. ASSESSMENT, IMPRESSION AND PLAN: 1. Acute kidney injury due to hypotension. 2. Atrial fibrillation. 3. Sepsis with potential source of the lower extremities wound. 4. Diabetes mellitus. 5. Erroneous calcium values. [address] [address] CONSULTATION Name: SONIA BELL Room #: 356-P [facility] IN ..#: [id number] Admission: 12/25/19 Attend Phys: Allegra Maldonado MD Discharge: Date of : 53 Report #: [id number] 6. The patient's creatinine had risen and coincided with the hypotension events that the patient ran through. I will discontinue all of his blood pressure medication. 7. We will discuss with the cardiac team to back off the diltiazem. 8. He will need boluses of IV fluid. I am aware of his heart condition. 9. Continue to hold blood pressure medications. 10. Basic urine electrolytes. 11. Blood sugar control. 12. Blood pressure control. 13. Continue to follow urine output, daily electrolytes and creatinine, urine output. 14. Expect full recovery. By: 1355 1525 Krystin Daniels MD /nt
[~2019-12-25 12:51] MED LIST changes: -TESSALON PERLE100 MG PO; -TRAMADOL 50 MG50 MG PO
[2019-12-25 12:52] VITALS: BP 121/67
[2019-12-25 13:32] LABS: ABSOLUTE NEUTROPHILS 14.5 thou/uL (1.4-8.2); BASOPHILS 0.5 % (0.0-2.0); EOSINOPHILS 1.3 % (0.0-3.0); HEMATOCRIT 37.3 % (42.0-52.0); HEMOGLOBIN 12.5 gm/dL (14.0-18.0); LYMPHOCYTES 8.7 % (24.0-44.0); MCHC 33.6 g/dL (28.0-37.0); MCV 83.1 fL (80.0-100.0); MONOCYTES 3.2 % (1.0-8.0); PLATELET COUNT 280 thou/uL (150-400); POLYS 86.3 % (36.0-66.0); RBC 4.49 mil/uL (4.50-6.00); RDW 16.3 % (10.5-14.5); WBC 16.8 thou/uL (4.0-11.0)
[2019-12-25 13:40] LABS: URINE BILIRUBIN NEGATIVE (Negative); URINE BLOOD 1+ (Negative); URINE CLARITY CLEAR; URINE COLOR YELLOW; URINE GLUCOSE-RANDOM* NEGATIVE (Negative); URINE KETONES NEGATIVE (Negative); URINE LEUKOCYTES-REFLEX NEGATIVE (Negative); URINE NITRITE-REFLEX NEGATIVE (Negative); URINE PROTEIN (DIPSTICK) NEGATIVE (Negative); URINE SPECIFIC GRAVITY 1.025 (1.005-1.035); URINE UROBILINOGEN 0.2 E.U./dl (0.2-1.0)
[2019-12-25 13:54] LABS: BACTERIA-REFLEX 1-9 Few /HPF (None Seen); CASTS None Seen /LPF (None Seen); CRYSTALS None Seen /LPF (None Seen); SQUAMOUS None Seen /LPF (0-3); URINE RBC 0-2 Rare /HPF (0-2); URINE WBC-REFLEX None Seen /HPF (0-5)
[2019-12-25] MEDS ORDERED: TRAMADOL 50 MG50 MG PO (14:14)
[2019-12-25] MEDS ORDERED: TESSALON PERLE100 MG PO (14:17)
[2019-12-25 14:35] LABS: ALBUMIN 2.2 g/dL (3.4-5.0); TOTAL BILIRUBIN 0.3 mg/dL (<0.1-1.0)
[2019-12-25 14:36] LABS: CALCIUM 5.7 mg/dL (8.5-10.1)
[2019-12-25 15:21] LABS: CREATININE 1.1 mg/dL (0.7-1.3); PHOSPHORUS 2.1 mg/dL (2.5-4.9)
[2019-12-25 15:27] LABS: CALCIUM 5.7 mg/dL (8.5-10.1)
[2019-12-25 15:36] VITALS: BP 140/72
[2019-12-25 17:15] VITALS: BP 106/74
[2019-12-25 17:31] VITALS: BP 98/51
--- NOTE | 2019-12-25 19:01 | NUR ---
PT ADMITTED TO 3W ROOM 356, PT ALERT AND ORIENTED X4,CAME ON 2L OXYGEN. NO SIGNS OF DISTRESS NOTED. PT ORIENTED TO ROOM, FALL CONSENT SIGNED. ADMISSION COMPLETED WITH PT. PT IS ON TELEMETRY, AFIB, RVR. CARIDZEM DRIP RUNNING 10MG/HR, PER ORDER. PT IS RIGHT BELOW THE KNEE AMPUTEE, LEFT LEG CELLULITIS. BOTH LOWER EXTREMITY WOUNDS PICTURES TAKEN, DRESSING CHANGE COMPLETED. DR. MOREL PAGED ABOUT PT HX OF DIABETES AND BEING ON INSULIN. PT DENIES ANY NEEDS AT THE MOMENT. CALL LIGHT IN REACH, AND BED AT LOWEST LEVEL.
[2019-12-25 20:28] VITALS: BP 95/60
--- NOTE | 2019-12-26 01:06 | NUR ---
TURNS SELF SIDE TO SIDE. HE DOES LIKE IT IF HE HAS A PILLOW OR BLANKET TUCKED BEHIND HIS BACK. COMPLAINS OF PAIN TO HIS LEFT LOWER EXT. 01/27. GAVE ULTRAM ORDERED. CONITNUES ON IV FLUIDS. TAKING ADEQAUTE PO FLUIDS. ALERT AND COOPERATIVE.
[2019-12-26 05:53] LABS: HEMATOCRIT 31.9 % (42.0-52.0); MCH 27.6 pg (26.0-34.0); MCHC 32.7 g/dL (28.0-37.0); MCV 84.4 fL (80.0-100.0); PLATELET COUNT 234 thou/uL (150-400); RBC 3.78 mil/uL (4.50-6.00); RDW 15.8 % (10.5-14.5); WBC 18.5 thou/uL (4.0-11.0)
[2019-12-26 05:58] LABS: HEMOGLOBIN 10.4 gm/dL (14.0-18.0)
[2019-12-26 06:26] LABS: ANION GAP 7 mmol/L (7-16); BUN 45 mg/dL (7-18); CHLORIDE 103 mmol/L (98-107); CO2 24 mmol/L (21-32); GLUCOSE 154 mg/dL (74-106); MAGNESIUM 1.6 mg/dL (1.8-2.4); SODIUM 134 mmol/L (136-145); TROPONIN-I <0.06 ng/mL (<0.06)
[2019-12-26 06:33] LABS: CALCIUM 8.2 mg/dL (8.5-10.1); CREATININE 2.4 mg/dL (0.7-1.3); POTASSIUM 4.8 mmol/L (3.5-5.1)
[2019-12-26 07:45] LABS: ABSOLUTE NEUTROPHILS 15.7 thou/uL (1.4-8.2)
[2019-12-26 07:46] LABS: ANISOCYTOSIS 1+
--- NOTE | 2019-12-26 07:47 | EKG ---
[facility] [place] [address] ELECTROCARDIOGRAM REPORT Name: SONIA BELL Room #: 356-P ADM IN M.R.#: [id number] Admission: 12/25/19 Attend Phys: Allegra Maldonado MD Discharge: Date of : 53 Report #: [id number] THIS REPORT FOR: cc: Carlos Daniels James D. DO Lundgren, Craig H. 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: JAVY : 1955 Requested By: Order Number: [id number] MD: Leon Ugalde Measurements Intervals [place] Rate: 146 P: GA: QRS: 101 QRSD: 103 T: 4 QT: 303 QTc: 473 Interpretive Statements Atrial fibrillation with a rapid ventricular response Right axis deviation Baseline wander in lead(s) II,III,aVF Compared to ECG 08/24/2018 08:02:57 Atrial fibrillation is now present Electronically Signed On 12-26-2019 7:45:34 CDT by Leon Ugalde [email or web address] <ELECTRONICALLY SIGNED> By: Leon Ugalde MD, [facility] 12/26/19 0745 1317 1317 Leon Ugalde MD, FAC /EPI
[2019-12-26 07:50] VITALS: BP 98/52
[2019-12-26 08:30] VITALS: BP 104/56
--- NOTE | 2019-12-26 09:04 | NUR ---
PT CARE ASSUMED AT 0700, PT ALERT AND ORIENTED X4, DENIES CHEST PAIN, SOB, NAUSEA AND VOMITING. PT IS ON ROOM AIR, OXYGEN SATURATION WNL, NO SIGNS OF DISTRESS NOTED. ASSESSMENT COMPLETED 0750 CARDIZEM DRIP RUNNING AT 10MG/HR, TITRATED DOWN TO 5MG. PT TOLERATED IT WELL, HR WNL. 0820 CARDIZEM DRIP DISCONTINUED. BP 104/54, HR 90
[2019-12-26 11:39] VITALS: BP 97/47
--- NOTE | 2019-12-26 13:31 | NUR ---
INITIAL ASSESSMENT: Received consult. YOLI reviewed chart and spoke with nursing and attending physician. Pt was admitted from [facility] due to sepsis/cellulitis. Pt with hx of right BKA. Pt is in Enhanced Isolation. COVID-19 test is negative. Renal consulted due to ARF. No weekend discharge planned. YOLI called pt via phone in room. No answer. YOLI placed call to pt's sister, Aug ([phone]). Number is no longer in service. Per chart, pt is alert/orientated. Pt is w/c bound at the facility. Plan is for pt to return to [facility] when medically stable. brand planner to fax clinical info to [facility] for review. YOLI contacted [facility] post-acute liaison that pt is in custodial care. Will need insurance authorization for skilled services if needed. YOLI is following to assist as needed with discharge planning.
--- NOTE | 2019-12-26 13:38 | NUR ---
PT IS FROM [facility] FAXED CLINICAL UPDATE SPOKE WITH HENRY IN ADM SHE RECEIVED UPDATE. DP TO FOLLOW.
--- NOTE | 2019-12-26 16:05 | 2DMMODE ---
[facility] [place] [address] 2 D/M-MODE ECHOCARDIOGRAM Name: SONIA BELL Room #: 356-P ADM IN M.R.#: [id number] Admission: 12/25/19 Attend Phys: Allegra Maldonado MD Discharge: Date of : 53 Report #: [id number] THIS REPORT FOR: cc: Carlos Daniels James D. DO Lundgren, Craig H. MD [facility] ~ APPROVED REPORT Study performed: 12/26/2019 13:34:34 EXAM: Comprehensive 2D, Doppler, and color-flow Echocardiogram Patient Location: Bedside Room #: 356 Status: routine BSA: 2.67 HR: 83 bpm BP: 98/52 mmHg Rhythm: Atrial Fibrillation Other Information Study Quality: Technically Difficult Technically limited study due to body habitus, inability to position patient. Indications Diabetes Atrial Fibrillation Hypertension/HDD HLD Echo Enhancing Agent Indication: Endocardial border delineation Agent(s) / Amount(s) Used: Optison 4 cc 2D Dimensions RVDd: 46.30 mm IVSd: 11.92 (7-11mm) LVOT Diam: 23.40 (18-24mm) LVDd: 52.83 mm PWd: 14.08 (7-11mm) LVDs: 39.60 (25-40mm) Aortic Root: 38.37 mm IVC: 26.00 mm Volumes Left Atrial Volume (Systole) [facility] [address] [address] 2 D/M-MODE ECHOCARDIOGRAM Name: SONIA BELL Room #: 356-P [facility] IN [facility].#: [id number] Admission: 12/25/19 Attend Phys: Bettie Trevino Discharge: Date of : 53 Report #: [id number] Single Plane 4CH: 79.83 mL Single Plane 2CH: 64.83 mL LA ESV Index: 30.00 mL/m2 Aortic Valve AoV Peak Fabio.: 1.38 m/s AO Peak Gr.: 7.65 mmHg LVOT Max P.56 mmHg LVOT Max V: 0.94 m/s CARLITOS Vmax: 2.93 cm2 Mitral Valve MV Decel. Time: 175.85 ms MV E Max Fabio.: 1.17 m/s IVRT: 55.36 ms Pulmonary Valve PV Peak Fabio.: 0.82 m/s PV Peak Gr.: 2.70 mmHg Tricuspid Valve TR Peak Fabio.: 3.00 m/s RAP Estimate: 15.00 mmHg TR Peak Gr.: 36.02 mmHg PA Pressure: 51.00 mmHg Left Ventricle The left ventricle is normal size. There is normal LV segmental wall motion. Mild concentric left ventricular hypertrophy. The left ventricular systolic function is normal. The left ventricular ejection fraction is within the normal range. LVEF is 55-60% Septal flattening consistent with RV pressure overload. This study is not technically sufficient to allow evaluation of the LV diastolic function due to atrial fibrillation. Right Ventricle Right ventricle is mildly dilated. Right ventricle is hypokinetic. Atria The left atrium size is normal. Right atrium is dilated. Aortic Valve The aortic valve is not well visualized. Trace aortic regurgitation. There is no aortic valvular stenosis. Mitral Valve Mild mitral annular calcification. Trace mitral regurgitation. No evidence of mitral valve stenosis. [facility] [address] [place] [address] 2 D/M-MODE ECHOCARDIOGRAM Name: SONIA BELL [place] Room #: 356-P [facility] IN ..#: [id number] Admission: 12/25/19 Attend Phys: Bettie Trevino Discharge: Date of : 53 Report #: [id number] Tricuspid Valve The tricuspid valve is normal in structure. Moderate tricuspid regurgitation. PAP is estimated at 45 mmHg. Pulmonic Valve Pulmonic valve is not well visualized. Great Vessels Aortic root is upper limits of normal in size at 3.8 cm. IVC is dilated and collapses <50% with inspiration. Pericardium There is no pericardial effusion. <Conclusion> Technically difficult, Optison administered The left ventricular systolic function is normal. There is normal LV segmental wall motion. LVEF is 55-60% Septal flattening consistent with RV pressure overload. Right atrium and ventricular enlargement The aortic valve is not well visualized. Trace aortic regurgitation, no stenosis. Mild mitral annular calcification. Trace mitral regurgitation. Moderate tricuspid regurgitation. Pulmonary artery pressure estimated at 45 mmHg. There is no pericardial effusion. <ELECTRONICALLY SIGNED> By: Leon Ugalde MD, [facility] 12/26/19 1603 160 160 Leon Ugalde MD, [facility] /INF
[2019-12-26 16:27] VITALS: BP 109/51
[2019-12-26 17:30] VITALS: BP 104/54
--- NOTE | 2019-12-26 17:50 | NUR ---
REPORT GIVEN TO AYAAN SANTAMARIA. PT BELONGINGS PACKED AND SENT TO PATIENT.
--- NOTE | 2019-12-26 18:58 | NUR ---
ASSUMMED PT CARE AT APPROXIMATELY 1730. PT A&O X4. ASSESSMENT CHARTED. FALL PRECAUTIONS IN PLACE. PT DENIES HAVING CHEST PAIN. PT DENIES HAVING SOB. PT DENIES HAVING ACUTE PAIN. PT TRANSFERRED FROM 3W. VITAL SIGNS STABLE. PT COMFORTABLE IN BED. PT DENIES HAVING FURTHER CONCERNS. EDUCATED PT ABOUT POC. PT STATED UNDERSTANDING AND DENIED HAVING FURTHER QUESTIONS.
[2019-12-26 20:15] VITALS: BP 127/60; BP 138/105
[2019-12-27] VITALS (8 sets, daily range): BP systolic 112–140; BP diastolic 60–73
--- NOTE | 2019-12-27 02:12 | NUR ---
0200 ASSUMED CARE OF PT AFTER REPORT FROM RN
[2019-12-27 05:49] LABS: ALBUMIN 3.2 g/dL (3.4-5.0); CALCIUM 8.1 mg/dL (8.5-10.1); CREATININE 2.2 mg/dL (0.7-1.3); PHOSPHORUS 3.4 mg/dL (2.5-4.9); POTASSIUM 4.4 mmol/L (3.5-5.1)
--- NOTE | 2019-12-27 16:34 | NUR ---
PT CARE ASSUMED AT 0700. ASSESSMENTS CHARTED. MEDICATIONS CHARTED. PT TO MRI OF KNEE, BUT IT CHANGED TO A CT OF KNEE DUE TO THE PT'S SIZE. RT BKA WITH WOUND. LT CALF WITH WOUND. DRESSINGS CHANGED BY WOUND DOCTOR WITH RN ASSISTANCE. PT UTILIZES URINAL.
[2019-12-28 03:26] LABS: ABSOLUTE NEUTROPHILS 4.5 thou/uL (1.4-8.2); BASOPHILS 0.5 % (0.0-2.0); EOSINOPHILS 4.1 % (0.0-3.0); HEMATOCRIT 26.5 % (42.0-52.0); HEMOGLOBIN 8.8 gm/dL (14.0-18.0); MCH 28.2 pg (26.0-34.0); MCHC 33.2 g/dL (28.0-37.0); MCV 84.9 fL (80.0-100.0); MONOCYTES 6.7 % (1.0-8.0); PLATELET COUNT 167 thou/uL (150-400); POLYS 67.7 % (36.0-66.0); RBC 3.12 mil/uL (4.50-6.00); RDW 16.1 % (10.5-14.5); WBC 6.6 thou/uL (4.0-11.0)
[2019-12-28 03:38] LABS: CALCIUM 8.7 mg/dL (8.5-10.1); CREATININE 1.8 mg/dL (0.7-1.3); MAGNESIUM 2.1 mg/dL (1.8-2.4); POTASSIUM 4.2 mmol/L (3.5-5.1)
[2019-12-28 04:45] VITALS: BP 140/767
--- NOTE | 2019-12-28 05:13 | NUR ---
ASSESSMENTS CHARTED. MEDS GIVEN CHARTED. PATIENT RESTING IN BED DURING SHIFT. AFIB ON TELEMETRY, LUNGS CLEAR OVER DIMINISHED ON ROOM AIR. MAKING URINE AGAIN. PATIENT HAS WOUNDS ON RIGHT LEG BKA SURGICAL SITE AND ON LEFT LEG CALF. PATIENT ON ANTIBIOTIC THERAPY. FALL PRECAUTIONS IN PLACE DURING SHIFT.
[2019-12-28 09:25] VITALS: BP 128/78
[2019-12-28 15:50] VITALS: BP 127/69
--- NOTE | 2019-12-28 17:56 | NUR ---
Assumed patient care at approximately 0840 (patient was transferred from ). Patient is alert and oriented x's 4, LSCTA (diminished), BS x's 4, abdomen non-tender, distended. Vital signs within normal limits; he denies pain. Patient has wound on right below the knee amputation as well as wound/cellulitis to left lower extremity. Dr Flores here to assess; he did dressing changes. Patient's appetite has been poor, with 25% intake for lunch. He refused his supplement, stating "I don't like the taste of those." Blood Sugar at lunch was 162, requiring 3 Units of Insulin. No Insulin required for Breakfast or Dinner. Dr Patel wrote orders for Lactulose due to constipation. Medication was effective. Patient was also placed on a 2000mL Fluid Restriction. He has only had approximately 300cc's of water during this shift, as he only is served water and Supplements at mealtimes, which he does not like. Patient is pleasant and cooperative with all tests and treatments. Will continue to monitor and report to on-coming nurse. for Lactulose due to constipation; this medication was effective.
[2019-12-28 19:41] VITALS: BP 134/64
--- NOTE | 2019-12-29 04:03 | NUR ---
Pt. rested quietly during the night when checked on during frequent rounds. He offers no complaints. Dressings to bilateral legs are clean/dry and intact. Bed alarm is on.
[2019-12-29 06:27] LABS: CALCIUM 8.9 mg/dL (8.5-10.1); CREATININE 1.7 mg/dL (0.7-1.3); PHOSPHORUS 3.1 mg/dL (2.5-4.9); POTASSIUM 4.1 mmol/L (3.5-5.1)
[2019-12-29 07:09] VITALS: BP 143/62
[2019-12-29 15:04] VITALS: BP 152/74
--- NOTE | 2019-12-29 19:19 | NUR ---
PT A&OX4, VSS, DENIES PAIN. DRESSING CHANGED TO RIGHT BKA AND LEFT LEG PER ORDERS. PATIENT PARTICIPATED WITH PT TODAY. PT REMAINS ON 2000 ML FLUID RESTRICTION. NO SIGNS OF DISTRESS. WILL CONTINUE TO MONITOR.
[2019-12-29 19:31] VITALS: BP 140/47
--- NOTE | 2019-12-30 05:21 | NUR ---
ASSUMED PT CARE AROUND 191. AXOX4. BLE DRESSINGS C,D,I. FLUID RESTRICTION MAINTAINED. RECEIVED A CALL FROM LAB ABOUT WOUND CULTURE ON R STUMP. PT REFUSED TO HAVE DRESSING UPWRAPPED FOR SAMPLE. WILL ENDORSE INCOMING RN TO TAKE SAMPLE WHEN NEXT WOUND CARE DUE. NO S/S ACUTE DISTRESS NOTED OR REPORTED AT THIS TIME. WILL CONT TO MONITOR FOR ANY CHANGES IN CONDITION.
[2019-12-30 06:20] LABS: CALCIUM 8.6 mg/dL (8.5-10.1); CREATININE 1.7 mg/dL (0.7-1.3); PHOSPHORUS 3.6 mg/dL (2.5-4.9); POTASSIUM 4.4 mmol/L (3.5-5.1)
[2019-12-30 07:25] VITALS: BP 133/72
[2019-12-30] MEDS ORDERED: CEFEPIME 1 GM VI1 G2 INJECTION (11:28)
[2019-12-30] MEDS ORDERED: LINEZOLID600 MG PO (11:28)
--- NOTE | 2019-12-30 11:43 | NUR ---
WOUND CARE NOTE ASSISTED DEPUTY SHERIFF CAROL W/ WOUND CARE PT IS BEING DC TODAY, CULT DONE R LEG STUMP WOUND, PHOTOS TAKEN, PT COOPERATIVE, WOUND R STUMP BEEFY RED, NO S/S INFECTION, DRAINAGE BRIGHT RED SEROUS, PACKED W/ DAKINS SOAKED GAUZE, ABD PAD, KERLIX, TATYANA WRAP APPLIED, WOUND MEASURES 2.5CM X2.5CM X 1.5CM, LEFT LOWER LEG WOUNDS HEALED, NO OPEN AREAS, XEROFORM, ABD PADS, KERLIX APPLIED RECOMMENDATIONS CONT CURRENT TX, DC INSTRUCTIONS ON CHART DEPUTY SHERIFF AWARE
--- NOTE | 2019-12-30 13:39 | NUR ---
CARE TEAM INDICATED THAT PT IS MEDICALLY STABLE TO DISHCARGE BACK TO [facility] THIS DAY. CM NOTIFIED LIAISON. CHART COPY ORDERED. TRANSPORT IS ARRANGED FOR [id number] THIS AFTERNOON. ORDERS ARE TO BE FAXED AND FAMILY NOTIFIED. REPORT TO BE CALLED TO . NO OTHER CM INTERVENTION INDICATED.
--- NOTE | 2019-12-30 16:48 | HC ---
[facility] [place] [address] CONSULTATION Name: SONIA BELL Room #: 458-P ADM IN M.R.#: [id number] Admission: 12/25/19 Attend Phys: Allegra Maldonado MD Discharge: Date of : 53 Report #: [id number] THIS REPORT FOR: cc: Carlos Daniels,Mariano Rivera MD ~ CC: Allegra Daniels DATE OF SERVICE: 12/26/2019 CHIEF COMPLAINT: Ulcers of bilateral lower extremities. HISTORY OF PRESENT ILLNESS: This is a 64-year-old male patient whom I am familiar from outpatient evaluation. He has a history of diabetes and osteomyelitis of his right lower extremity. He is status post BKA. He has had a slow to heal BKA surgical wound. He has been followed in the wound clinic by myself as well as my partner, Dr. Bell. He is admitted after having increasing nausea and left lower extremity drainage and pain. I have been asked to see him with regard to wound care. PAST MEDICAL HISTORY: Positive for history of atrial fibrillation, acute kidney failure requiring dialysis, an abscess following right BKA, history of osteomyelitis of the right lower extremity, type 2 diabetes mellitus, hyperlipidemia, congestive heart failure, peripheral vascular disease and gastroesophageal reflux. SOCIAL HISTORY: The patient is a previous smoker, having quit greater than a year ago. No alcohol use. FAMILY HISTORY: Noncontributory. MEDICATIONS: Include Eliquis, Levemir, MiraLax, senna, NovoLog, Neurontin, Ultram, Tessalon Perles, vitamin D, Dulcolax, iron, Flomax, Probiotic, Lopressor, Protonix, simvastatin, and Tylenol. ALLERGIES: AMPICILLIN, PENICILLIN, SULFA, AND TRIMETHOPRIM. REVIEW OF SYSTEMS: CONSTITUTIONAL: The patient denies fever, chills or weight loss. NEUROLOGICAL: The patient denies focal weakness, numbness or tingling. EYES: The patient denies visual changes, redness, or drainage. ENT: The patient denies earache, nasal drainage, sore throat. CARDIOVASCULAR: The patient denies chest pain, palpitations or diaphoresis. PULMONARY: The patient denies cough or shortness of breath. GASTROINTESTINAL: The patient denies nausea, vomiting, diarrhea or abdominal [address] [address] CONSULTATION Name: BELLSONIA G Room #: 458-P [facility] IN .R.#: [id number] Admission: 12/25/19 Attend Phys: Allegra Maldonado MD Discharge: Date of : 53 Report #: [id number]. ORTHOPEDIC: The patient does note some drainage and some pain from his right lower extremity, some swelling of his left lower extremity. Other systems in a 14-point review of systems are negative. PHYSICAL EXAMINATION: VITAL SIGNS: At this time include temperature 37.1, pulse 96, respiratory rate 14, blood pressure __/51. GENERAL: This is a chronically ill-appearing male patient who appears to be in no distress. HEENT: Head normocephalic. Nose and throat clear. NECK: Supple. LUNGS: Clear. HEART: Irregular without murmur. ABDOMEN: Soft. Bowel sounds present. EXTREMITIES: Examination of the lower extremities demonstrates right BKA demonstrates a surgical wound in the mid portion of the previous surgical incision. There is a little bit of depth and undermining although the base appears to be relatively clean, although we are somewhat close to bone and it is not directly exposed at this time. Left lower extremity demonstrates edema and some erythema present. Distal pulses are diminished, but capillary refill is slightly delayed. NEUROLOGIC: The patient is alert and oriented and appropriate. LABORATORY DATA: Include white blood cell count 18.5 with hemoglobin 10.4. Sodium 141, potassium 3.0, chloride 112, CO2 of 21, BUN 26, creatinine 1.0, glucose 119, and calcium is low at 5.7. Albumin is low at 2.2. CLINICAL IMPRESSION: 1. Nonhealing surgical wound following right below knee amputation. 2. Diabetes mellitus with peripheral neuropathy. 3. History of osteomyelitis. 4. Severe hypocalcemia. 5. Atrial fibrillation with rapid ventricular response. 6. Stasis dermatitis to the left lower extremity. 7. Type 2 diabetes mellitus. 8. Congestive heart failure with left ventricular ejection fraction 45%. RECOMMENDATIONS: At this point in time, we will recommend packing the right BKA site with a quarter strength Dakin's moist gauze dressing. Recommend AmLactin cream, Xeroform gauze, ABD and Kerlix to the left lower extremity, elevation of the leg for control of edema. Recommend continuation of current medications. [address] [address] CONSULTATION Name: SONIA BELL Room #: 458-P [facility] IN M.R.#: [id number] Admission: 12/25/19 Attend Phys: Allegra Maldonado MD Discharge: Date of : 53 Report #: [id number] He will need aggressive nutritional support to maximize wound healing and maintain glycemic control. I appreciate being asked to see him in consultation. <ELECTRONICALLY SIGNED> By: Mariano Benito MD 12/30/19 1648 1805 1953 Mariano Benito MD /nt
--- NOTE | 2019-12-30 18:41 | NUR ---
Assumed patient care at 0715. Vital signs stable, LSCTA (diminished), abdomen soft and non-tender, BS x's 4, he denies pain except with dressing changes. Patient is alert and oriented x's 4, pleasant and compliant with medications. No adverse affects from IV Antibiotic Therapy. Dressing changes completed with assist from Wound Care; pictures taken as well. Patient only drank approximately 100cc's of water, as he has been compliant with 2000cc fluid restriction. Total urine output was approximately 550cc. Patient was Discharged back to [facility] at 1700, via [employer].
== END 2019-12-30 17:00 | DRG 564 ==
LOC: ER 12:51 → 3W 15:14 → EROBS 15:22 → 3W 15:22 → 2N 12-26 17:29 → 4W 12-28 09:24
PROVIDERS: Emergency Medicine; Hospitalist; Internal Medicine; Nurse Practitioner; ADMIT Hospitalist
DX: T87.43 Infection of amputation stump, right lower extremity (principal); A41.9 Sepsis, unspecified organism; E43 Unspecified severe protein-calorie malnutrition; R65.20 Severe sepsis without septic shock; I50.40 Unspecified combined systolic (congestive) and diastolic (congestive) heart failure; N17.9 Acute kidney failure, unspecified; L03.115 Cellulitis of right lower limb; I13.2 Hypertensive heart and chronic kidney disease with heart failure and with stage 5 chronic kidney disease, or end stage renal disease; Z68.42 Body mass index [BMI] 45.0-49.9, adult; I42.9 Cardiomyopathy, unspecified; I48.21 Permanent atrial fibrillation; N18.9 Chronic kidney disease, unspecified; Z96.651 Presence of right artificial knee joint; E78.5 Hyperlipidemia, unspecified; E11.51 Type 2 diabetes mellitus with diabetic peripheral angiopathy without gangrene; N40.0 Benign prostatic hyperplasia without lower urinary tract symptoms; K21.9 Gastro-esophageal reflux disease without esophagitis; E11.22 Type 2 diabetes mellitus with diabetic chronic kidney disease; E83.51 Hypocalcemia; E87.6 Hypokalemia; Z66 Do not resuscitate; I95.9 Hypotension, unspecified; Z20.828 Contact with and (suspected) exposure to other viral communicable diseases; Y82.8 Other medical devices associated with adverse incidents; Y83.8 Other surgical procedures as the cause of abnormal reaction of the patient, or of later complication, without mention of misadventure at the time of the procedure; I87.2 Venous insufficiency (chronic) (peripheral); Z79.01 Long term (current) use of anticoagulants; Z79.899 Other long term (current) drug therapy; Z88.1 Allergy status to other antibiotic agents; Z99.2 Dependence on renal dialysis; Z88.0 Allergy status to penicillin; Z88.2 Allergy status to sulfonamides; Z88.8 Allergy status to other drugs, medicaments and biological substances; Z82.49 Family history of ischemic heart disease and other diseases of the circulatory system; Z03.818 Encounter for observation for suspected exposure to other biological agents ruled out; Z83.3 Family history of diabetes mellitus
CPT/HCPCS: 10047; 10081; 10779; 10879

== ENCOUNTER → 2020-01-09 | Outpatient (CLI) | payer OTHER ==
[~2020-01-09] MED LIST changes: +CEFEPIME 1 GM VI1 G2 INJECTION; +LINEZOLID600 MG PO; +TESSALON PERLE100 MG PO; +TRAMADOL 50 MG50 MG PO
== END ==
LOC: HYPER 08:38
DX: T87.81 Dehiscence of amputation stump (principal); E11.622 Type 2 diabetes mellitus with other skin ulcer; L97.812 Non-pressure chronic ulcer of other part of right lower leg with fat layer exposed; L97.822 Non-pressure chronic ulcer of other part of left lower leg with fat layer exposed; E11.42 Type 2 diabetes mellitus with diabetic polyneuropathy; E11.51 Type 2 diabetes mellitus with diabetic peripheral angiopathy without gangrene; E11.69 Type 2 diabetes mellitus with other specified complication; M86.8X8 Other osteomyelitis, other site; E78.5 Hyperlipidemia, unspecified; E46 Unspecified protein-calorie malnutrition; I11.0 Hypertensive heart disease with heart failure; I50.30 Unspecified diastolic (congestive) heart failure; I48.91 Unspecified atrial fibrillation; R26.81 Unsteadiness on feet; K21.9 Gastro-esophageal reflux disease without esophagitis; M62.521 Muscle wasting and atrophy, not elsewhere classified, right upper arm; M62.522 Muscle wasting and atrophy, not elsewhere classified, left upper arm; Z79.01 Long term (current) use of anticoagulants; Z79.4 Long term (current) use of insulin; Z87.891 Personal history of nicotine dependence; Z99.2 Dependence on renal dialysis; Y83.5 Amputation of limb(s) as the cause of abnormal reaction of the patient, or of later complication, without mention of misadventure at the time of the procedure

== ENCOUNTER → 2020-01-22 | Outpatient (CLI) | payer OTHER | LOC: HYPER 08:54 | PROVIDERS: ATTEND Emergency Medicine Emergency Medical Services | DX: T87.81 Dehiscence of amputation stump (principal); E11.622 Type 2 diabetes mellitus with other skin ulcer; L97.812 Non-pressure chronic ulcer of other part of right lower leg with fat layer exposed; L97.822 Non-pressure chronic ulcer of other part of left lower leg with fat layer exposed; I89.0 Lymphedema, not elsewhere classified; E11.42 Type 2 diabetes mellitus with diabetic polyneuropathy; E11.51 Type 2 diabetes mellitus with diabetic peripheral angiopathy without gangrene; E11.69 Type 2 diabetes mellitus with other specified complication; M86.8X8 Other osteomyelitis, other site; E78.5 Hyperlipidemia, unspecified; E46 Unspecified protein-calorie malnutrition; I11.0 Hypertensive heart disease with heart failure; I50.30 Unspecified diastolic (congestive) heart failure; I48.91 Unspecified atrial fibrillation; K21.9 Gastro-esophageal reflux disease without esophagitis; R26.81 Unsteadiness on feet; M62.521 Muscle wasting and atrophy, not elsewhere classified, right upper arm; M62.522 Muscle wasting and atrophy, not elsewhere classified, left upper arm; Z79.01 Long term (current) use of anticoagulants; Z79.4 Long term (current) use of insulin; Z87.891 Personal history of nicotine dependence; Y83.5 Amputation of limb(s) as the cause of abnormal reaction of the patient, or of later complication, without mention of misadventure at the time of the procedure ==

== ENCOUNTER → 2020-02-02 | Outpatient (CLI) | payer OTHER | LOC: SJCVC 13:22 | PROVIDERS: ATTEND Internal Medicine Cardiovascular Disease | DX: I48.91 Unspecified atrial fibrillation (principal); I45.10 Unspecified right bundle-branch block; R94.31 Abnormal electrocardiogram [ECG] [EKG]; I13.0 Hypertensive heart and chronic kidney disease with heart failure and stage 1 through stage 4 chronic kidney disease, or unspecified chronic kidney disease; E11.22 Type 2 diabetes mellitus with diabetic chronic kidney disease; N18.9 Chronic kidney disease, unspecified; I50.32 Chronic diastolic (congestive) heart failure; E78.00 Pure hypercholesterolemia, unspecified; K21.9 Gastro-esophageal reflux disease without esophagitis; E78.5 Hyperlipidemia, unspecified; Z79.4 Long term (current) use of insulin; Z79.899 Other long term (current) drug therapy ==

== ENCOUNTER → 2020-02-05 | Outpatient (CLI) | payer OTHER | LOC: HYPER 08:42 | PROVIDERS: ATTEND Emergency Medicine | DX: T87.81 Dehiscence of amputation stump (principal); L97.812 Non-pressure chronic ulcer of other part of right lower leg with fat layer exposed; L97.822 Non-pressure chronic ulcer of other part of left lower leg with fat layer exposed; E11.42 Type 2 diabetes mellitus with diabetic polyneuropathy; M62.521 Muscle wasting and atrophy, not elsewhere classified, right upper arm; M62.522 Muscle wasting and atrophy, not elsewhere classified, left upper arm; R26.81 Unsteadiness on feet; I48.91 Unspecified atrial fibrillation; E78.5 Hyperlipidemia, unspecified; K21.9 Gastro-esophageal reflux disease without esophagitis; I11.0 Hypertensive heart disease with heart failure; I50.30 Unspecified diastolic (congestive) heart failure; E11.51 Type 2 diabetes mellitus with diabetic peripheral angiopathy without gangrene; N17.9 Acute kidney failure, unspecified; Z79.01 Long term (current) use of anticoagulants; Z79.4 Long term (current) use of insulin; Z99.2 Dependence on renal dialysis; Z87.891 Personal history of nicotine dependence; Y83.5 Amputation of limb(s) as the cause of abnormal reaction of the patient, or of later complication, without mention of misadventure at the time of the procedure ==

== ENCOUNTER → 2021-02-10 | Outpatient (CLI) | payer OTHER | LOC: HYPER 09:01 | PROVIDERS: ATTEND Emergency Medicine | DX: T87.81 Dehiscence of amputation stump (principal); E11.51 Type 2 diabetes mellitus with diabetic peripheral angiopathy without gangrene; E11.42 Type 2 diabetes mellitus with diabetic polyneuropathy; I89.0 Lymphedema, not elsewhere classified; I11.0 Hypertensive heart disease with heart failure; I50.30 Unspecified diastolic (congestive) heart failure; E78.5 Hyperlipidemia, unspecified; I48.91 Unspecified atrial fibrillation; N40.1 Benign prostatic hyperplasia with lower urinary tract symptoms; K21.9 Gastro-esophageal reflux disease without esophagitis; E11.69 Type 2 diabetes mellitus with other specified complication; M86.20 Subacute osteomyelitis, unspecified site; Z87.891 Personal history of nicotine dependence; Z99.2 Dependence on renal dialysis; Z79.4 Long term (current) use of insulin; Z79.01 Long term (current) use of anticoagulants; Y83.5 Amputation of limb(s) as the cause of abnormal reaction of the patient, or of later complication, without mention of misadventure at the time of the procedure ==

== ENCOUNTER → 2021-04-21 | Outpatient (CLI) | payer OTHER | LOC: HYPER 08:36 | PROVIDERS: ATTEND Emergency Medicine | DX: T87.81 Dehiscence of amputation stump (principal); S81.812A Laceration without foreign body, left lower leg, initial encounter; E11.51 Type 2 diabetes mellitus with diabetic peripheral angiopathy without gangrene; E11.42 Type 2 diabetes mellitus with diabetic polyneuropathy; I89.0 Lymphedema, not elsewhere classified; I11.0 Hypertensive heart disease with heart failure; I50.30 Unspecified diastolic (congestive) heart failure; I87.2 Venous insufficiency (chronic) (peripheral); E78.5 Hyperlipidemia, unspecified; I48.91 Unspecified atrial fibrillation; N40.1 Benign prostatic hyperplasia with lower urinary tract symptoms; K21.9 Gastro-esophageal reflux disease without esophagitis; E11.69 Type 2 diabetes mellitus with other specified complication; M86.20 Subacute osteomyelitis, unspecified site; Z87.891 Personal history of nicotine dependence; Z99.2 Dependence on renal dialysis; Z79.4 Long term (current) use of insulin; Z79.01 Long term (current) use of anticoagulants; X58.XXXA Exposure to other specified factors, initial encounter; Y93.89 Activity, other specified; Y92.89 Other specified places as the place of occurrence of the external cause; Y99.8 Other external cause status; Y83.5 Amputation of limb(s) as the cause of abnormal reaction of the patient, or of later complication, without mention of misadventure at the time of the procedure ==